=== PATIENT | male | born 1945 | race Caucasian/White ===

== ENCOUNTER 2017-03-02 07:46 | Inpatient (IN) ==
[2017-03-02] MEDS ORDERED: Perflutren Lipid Microsphere 1.3 ML in 0.9 % Sodium Chloride 8.7 ML IVP ONE (08:38)
[2017-03-02] MEDS ORDERED: Naloxone 0.4 MG/ML INJ IVP PRN ×2 (12:53→13:15)
--- NOTE | 2017-03-02 12:58 | Cardiology History & Physical ---
Date of Encounter: 03/02/17 Time of Encounter: 11:00 Assessment and Plan (1) Chest pain Current Visit: Yes Status: Acute The assessment and plan as outlined above was discussed with the patient and/or family members who expressed understanding and agreement. All questions were answered. (2) Abnormal stress ECG with treadmill Current Visit: Yes Status: Acute The assessment and plan as outlined above was discussed with the patient and/or family members who expressed understanding and agreement. All questions were answered. History of Present Illness HPI: Mr. Hook is a 71 year old male Past Med Surg Social Fam HX - Past Medical History Attestation: Yes The following information was validated with the patient. Source: patient Medical history: no medical history, other (obesity) Psychiatric history: no psych history - Past Surgical History Surgical History: herniorrhaphy, other - Social History Smoking Status: Never smoker Smokeless Tobacco Status: No Alcohol use: none Drug use: none - Family History Mother Living Status: Hx Family Cardiac Disorders: No Hx Family Respiratory Disorders: Yes Hx Family Cancer: No Hx Family GI Disorders: No Hx Family Endocrine Disorder: No Hx Family Neuromuscular Disorders: No Hx Family Neurologic Disorders: No Hx Family HEENT Disorders: No Hx Family Autoimmune Disorders: No Medications and Allergies Multivit-Min/FA/Lycopen/Lutein [Centrum Silver Men Tablet] 1 tab PO DAILY [History] 3 Allergy/AdvReac Type Severity Reaction Status Date / Time No Known Allergies Allergy Verified 06/11/16 12:01 All Systems Review: A 10-system review of systems was performed and is negative for pertinent findings except as documented above in the HPI. - Constitutional Constitutional: fatigue - Cardiovascular Cardiovascular: as per HPI, chest pain with exertion, dyspnea on exertion, radiating jaw, neck or arm pain Physical Examination Vital Signs, Last 4 Hours Temp Pulse Resp BP Pulse Ox 03/02/17 12:26 98.1 F 60 18 176/89 96 General: Conversant, No Apparent Distress HEENT: Atraumatic, Normocephaly, Mucus Membranes Moist Neck: No JVD, Normal carotid pulses Cardiac: Reg Rate and Rhythm, Normal S1 and S2, No Murmur Lungs: Normal Breath Sounds, No Wheeze, Rales, Rhonchi Neuro: Alert and responsive, No focal deficits noted Abdomen: Soft, Non-Tender, Other (obese) Skin: No rashes noted on visualized skin Musculoskeletal: No Chest Wall Tenderness Extremities: No Clubbing, No Cyanosis, No Edema, Normal Pulses Results Pending - Imaging and Cardiology Stress Test: pending Cardiac cath: pending - EKG Interpretation EKG results cardiology: personally reviewed, normal ECG, sinus rhythm, other (+ ischemi during stress test)
--- NOTE | 2017-03-02 13:15 | Cardiology History & Physical ---
<Jesus Gates - Last Filed: 03/02/17 14:04> Date of Encounter: 03/02/17 Time of Encounter: 10:00 Assessment and Plan (1) Chest pain Current Visit: Yes Status: Acute Per Cardiology: Experiencing worsening chest pain with exertional activities. Positive ECG abnormal findings during exercise nuclear stress test today. Had CP 7/10 and hypertensive BP response with PVCs. Discussed with Dr. Nolasco and Dr. Chan, plan for LHC today. Qualifiers: Qualified Code(s): R07.9 - Chest pain, unspecified (2) Abnormal stress ECG with treadmill Current Visit: Yes Status: Acute Per Cardiology: Abnormal ST depression during stress test with PVCs, stress images completed, resting to be cancelled since [address] and will have LHC today. The assessment and plan as outlined above was discussed with the patient who expressed understanding and agreement. All questions were answered. History of Present Illness Chief complaint: CP HPI: Mr. Hook is a 71 year old male with an relevant past medical history of obesity. He denies any known history of CAD, hypertension, hyperlipidemia, diabetes mellitus, or nicotine abuse. Denies any family history of CAD-- reports family of lung cancer with significant smoking history. Patient reports exertional chest pain symptoms the past 6 months relieved with rest. He reports symptoms have progressively been getting worse with bilateral arm pain with exertion as well. He does report overall increased fatigue and dyspnea on exertion. Patient seen today during outpatient 2 day exercise nuclear stress test. Patient had hypertensive blood pressure response with frequent ectopy with PVCs and ST depression throughout with chest pain 7 out of 10. D[address] Paniagua and was agreeable for direct admission for catheterization. Past Med Surg Social Fam HX - Past Medical History Attestation: Yes The following information was validated with the patient. Source: patient, old records reviewed Medical history: no medical history, other (obesity) Psychiatric history: no psych history - Past Surgical History Surgical History: herniorrhaphy, other - Social History Smoking Status: Never smoker Smokeless Tobacco Status: No Alcohol use: none Drug use: none - Family History Mother Living Status: Hx Family Cardiac Disorders: No Hx Family Respiratory Disorders: Yes Hx Family Cancer: No Hx Family GI Disorders: No Hx Family Endocrine Disorder: No Hx Family Neuromuscular Disorders: No Hx Family Neurologic Disorders: No Hx Family HEENT Disorders: No Hx Family Autoimmune Disorders: No Medications and Allergies Multivit-Min/FA/Lycopen/Lutein [Centrum Silver Men Tablet] 1 tab PO DAILY [History] 3 Allergy/AdvReac Type Severity Reaction Status Date / Time No Known Allergies Allergy Verified 06/11/16 12:01 All Systems Review: A 10-system review of systems was performed and is negative for pertinent findings except as documented above in the HPI. - Constitutional Constitutional: fatigue - Cardiovascular Cardiovascular: as per HPI, chest pain with exertion, dyspnea on exertion Physical Examination Vital Signs, Last 4 Hours Temp Pulse Resp BP Pulse Ox 03/02/17 12:26 98.1 F 60 18 176/89 96 General: Conversant, No Apparent Distress HEENT: Atraumatic, Normocephaly, Mucus Membranes Moist Neck: No JVD, Normal carotid pulses Cardiac: Reg Rate and Rhythm, Normal S1 and S2, No Murmur Lungs: Normal Breath Sounds, No Wheeze, Rales, Rhonchi Neuro: Alert and responsive, No focal deficits noted Abdomen: Soft, Non-Tender Skin: No rashes noted on visualized skin Musculoskeletal: No Chest Wall Tenderness Extremities: No Clubbing, No Cyanosis, No Edema, Normal Pulses Results labs pending - Imaging and Cardiology Stress Test: pending Cardiac cath: pending - EKG Interpretation EKG results cardiology: personally reviewed, normal ECG, sinus rhythm, other ( ST depression during stress test) <Yves Nolasco - Last Filed: 03/02/17 14:23> Date of Encounter: 03/02/17 - Attending Attestation I have personally performed a face to face evaluation on this patient. I have reviewed and agree with the care plan. History and Exam by me shows: 1. Unstable angina, with progressively decreased exercise tolerance, increased severity of chest pain with exertion, unable to complete 2 mins of stress test before he developed severe, crushing 9/10 mid sternal chest pain, and acute ST seg depression consistent with anterior lateral ischemia. Discussed options, including continued medical tx at maximized doses, versus LHC with percutaneous revascularization if indicated, pt elects to proceed with diagnostic imaging. 2. Morbid obesity. will need careful instuction for lifesytle modifications. History of Present Illness HPI: Mr. Hook is a 71 year old male All Systems Review: A 10-system review of systems was performed and is negative for pertinent findings except as documented above in the HPI. Physical Examination Vital Signs, Last 4 Hours Temp Pulse Resp BP Pulse Ox 03/02/17 12:26 98.1 F 60 18 176/89 96
--- NOTE | 2017-03-02 14:58 | Pre-Sedation Evaluation ---
Pre-sedation evaluation - Pre-sedation checklist Date of procedure: 03/02/17 Procedure: [facility] Recent Vitals: Last Vital Signs Temp 98.1 F 03/02/17 12:26 Pulse 60 03/02/17 12:26 Resp 18 03/02/17 12:26 BP 176/89 03/02/17 12:26 Pulse Ox 96 03/02/17 12:26 H&P (including ROS) documented in medical record: Yes Previous reaction to sedatives/anesthetics: No Dietary Status: NPO after Midnight Dentition: No loose teeth or bridges ASA Classification *see protocol: CLASS II-Mild systemic disease Plan of Care: Pt appropriate candidate for procedure/moderate/conscious sedation , Risks/benefits of procedure/sedation discussed w/ patient/family
[2017-03-02] MEDS: Aspirin 81 MG TAB.CHEW PO SCH ×2 (15:44→20:09)
[2017-03-02 15:55] LABS: Hematocrit 44.4 % (37.5-50.1); Hemoglobin 14.9 g/dL (12.9-16.9); Mean Corpuscular HGB Conc 33.6 g/dL (31.6-35.5); Mean Corpuscular Hemoglobin 29.3 pg (28.0-33.3); Mean Corpuscular Volume 87.2 fL (83.0-100.0); Mean Platelet Volume 9.3 fL (9.4-12.4); Platelet Count 191 K/mcL (140-400); Red Blood Count 5.09 M/mcL (4.19-5.50); Red Cell Distribution Width 13.8 % (11.5-14.5)
[2017-03-02 16:01] LABS: INR 1.1; Prothrombin Time 11.5 Seconds (9.4-12.1)
[2017-03-02 16:08] LABS: BUN/Creatinine Ratio 15 (6-26); Blood Urea Nitrogen 11 mg/dL (8-23); Calcium 9.2 mg/dL (8.6-10.3); Carbon Dioxide 28 mEq/L (23-29); Chloride 106 mEq/L (98-107); Glucose 125 mg/dL (70-105); Osmolality,Calculated 289 (280-300); Potassium 4.1 mEq/L (3.5-5.1); Sodium 139 mEq/L (136-145); eGFR For African Americans > 60 (> 60); eGFR For Non-African Americans > 60 (> 60)
[2017-03-02] MEDS ORDERED: *HR* Heparin 10,000 UNIT/10 ML VIAL ONE (17:21)
[2017-03-02] MEDS ORDERED: Nitroglycerin 1,000 MCG/10 ML VIAL IV ONE (17:21)
[2017-03-02] MEDS ORDERED: 0.9 % Sodium Chloride 1,000 ML ONE (17:21)
[2017-03-02] MEDS ORDERED: Heparin 1,000 UNITS/500 mL 500 ML ONE (17:22)
[2017-03-02] MEDS ORDERED: *HR* Midazolam HCl 5 MG/5 ML VIAL IVP ONE (17:56)
[2017-03-02] MEDS ORDERED: *HR* FentaNYL (PF) 100 MCG/2 ML VIAL ONE (17:56)
[2017-03-02] MEDS ORDERED: Verapamil 5 MG/2 ML VIAL ONE (18:01)
[2017-03-02] MEDS ORDERED: Acetaminophen 325 MG TABLET PO PRN (18:16)
[2017-03-02] MEDS ORDERED: Ondansetron 4 MG/2 ML VIAL IVP PRN (18:16)
[2017-03-02] MEDS ORDERED: *HR* HYDROcodone/Acet 5/325 mg TABLET PO PRN (18:16)
[2017-03-02] MEDS ORDERED: *HR* Heparin 5,000 UNIT/ML VIAL IVP ONE (18:17)
[2017-03-02] MEDS ORDERED: *HR* Heparin 5,000 UNIT/ML VIAL IVP PRN ×2 (18:17)
--- NOTE | 2017-03-02 18:27 | Invasive Diagnostic Lab Proc ---
Name: Cruz Hook Date of Study: 03/02/2017 Date: 1945 Ht: 64.0in Medical Record#: [id number] Age: 71 Wt: 350.54lb Gender: Male BSA: 2.48 Order #: [id number] BMI: 60.17 Physicians Procedure Physician: Woodrow Chan MD, [facility] Referring MD: Referring MD: Staff Name Position Time In Kamaljit Madrid RN Publicity Writer 05:40 PM Gisele Dash RT (R) Scrub 05:40 PM Mk Lopez RT (R) Monitor 05:40 PM Indications Indication Abnormal Test - Stress Procedures Performed Procedure L HRT ARTERY/VENTRICLE ANGIO Pre-Procedure Checklist Informed consent is complete signed and on chart. H&P is on chart. ID band is on and ID verified with patient. Patient NPO for procedure The procedure was described for the patient and questions were answered. Blood Pressure: 185/94 ECG is on chart. Rhythm: NSR Plan of Care Patient will tolerate the procedure without complications. Adequate level of comfort will be maintained. Hemodynamics will remain stable Patient will recover from procedure without complications. Respiratory function will be maintained. Cardiac rhythm will remain stable. Patient temperature will be maintained. Patient and/or family have verbalized understanding of the procedure. Patient Education Chief Complaint/Reason for Test: Cardiac Cath Developmental Category: Geriatric (65+ years) Developmentally Appropriate for Age: Yes Learning Barriers: None Education Needs: Plan of Care Education Method: Verbal Information Taught: Cardiac Cath Educational Evaluation: Able to repeat information Intravenous Access Time IV Size Location DC'd Fluid/Drip Rate Units RN 22g 1" Patent On Arrival Rt Antecubital 0.9NaCl 25 ml/hr Kamaljit Madrid RN Allergies No Known Allergies Vital Signs Time BP (mmHg) HR (bpm) O2 Sat. RR (bpm) LOC 05:43 PM 185 / 94 74 98 % 13 5 = Fully awake and oriented or at pre-proc level 05:43 PM / % 5 = Fully awake and oriented or at pre-proc level 05:58 PM / % 4 = Oriented but drowsy 05:53 PM 185 / 94 78 97 % 18 05:57 PM 179 / 88 74 97 % 15 06:02 PM 165 / 77 64 95 % 25 06:07 PM 142 / 72 71 93 % 35 06:12 PM 145 / 107 114 94 % 17 Procedural Medications Time Medication Dose Units Method Given By 05:55 PM Oxygen 2 L/min nasal cannula Kamaljit Madrid RN 05:58 PM Versed 3 mg Intravenous Kamaljit Madrid RN 05:58 PM Fentanyl 50 mcg Intravenous Kamaljit Madrid RN 06:03 PM Heparin 4000 units Nitroglycerin 200 mcg Verapamil 2.5 mg Intraarterial Woodrow Chan MD, [facility] ASA Classification: CLASS II- Mild systemic disease (i.e. well-controlled diabetes, hypertension, asthma, cigarette smoking) Candace Score Preprocedure Postprocedure Activity 2- Moves 4 extremities sustained head lift Activity Circulation 2- SBP +/= 20 points of pre-anesthetic level Circulation Consciousness 2- Awake and alert oriented x 3 Consciousness O2 Saturation 2- Able to maintain O2 satruation of 92% on room air O2 Saturation Respiratory 2- Able to deep breathe and cough well Respiratory Total Score 10 Total Score Contrast Agent: Isovue Diagnostic Contrast: 61 ml Total Contrast: 61 ml Fluoro Dose: 570 mGy Procedure Log Time Note Enter By 05:40 PM Kamaljit Madrid RN Position: Publicity Writer Time in: 17:40 [email or web address] 05:40 PM Gisele Dash RT (R) Position: Scrub Time in: 17:40 [email or web address] 05:41 PM Mk Lopez RT (R) Position: Monitor Time in: 17:40 [email or web address] 05:41 PM Patient charges- Angio tray pack, Navilyst 3mm J, Pulse Oximetry and ACIST tubing and transducer [email or web address] 05:41 PM Case Delayed No [email or web address] 05:43 PM CathStat 05:43 PM Pt arrived to rags laborer 2 at 17:43 [email or web address] 05:43 PM Time: 17:43 Patient comfortable and pain free: Yes [email or web address] 05:43 PM Time: 17:43LOC: 5 = Fully awake and oriented or at pre-proc level [email or web address] 05:45 PM Physician arrived 17:45 [email or web address] 05:45 PM Meet and greet completed [email or web address] 05:45 PM Sign in performed according to hospital policy. [email or web address] 05:45 PM Procedure start 17:45 [email or web address] 05:46 PM ASA Class CLASS II- Mild systemic disease (i.e. well-controlled diabetes, hypertension, asthma, cigarette smoking) [email or web address] 05:52 PM Vitals capture started with the following parameters, Patient=Adult, Interval=5 min, Initial Sijyepnl=380 mmHg, Deflation Rate=5 mmHg, Cuff placed on Left Arm 05:53 PM HR=78 bpm, DRLM=105/94 mmhg, SpO2=97.0 %, Resp=18 B/min 05:54 PM Recorded ECG: HR=72 Condition=Condition 1 05:55 PM Hair removed from procedure site in procedure lab using clippers. Right wrist prepped with Chloraprep by Mk Lopez (R), safety strap applied then patient was draped. Skin intact. [email or web address] 05:55 PM Hair removed from procedure site in procedure lab using clippers. Right groin prepped with Chloraprep by Mk Lopez (R), safety strap applied then patient was draped. Skin intact. 05:55 PM Time: 17:55 Oxygen on at 2 L/min per nasal cannula by Kamaljit Madrid RN 05:57 PM HR=74 bpm, JPYN=005/88 mmhg, SpO2=97.0 %, Resp=15 B/min 05:58 PM Time: 17:58 Versed 3 mg Intravenous Given by Kamaljit Madrid RN 05:58 PM Time: 17:58 Fentanyl 50 mcg Intravenous Given by Kamaljit Madrid RN 05:58 PM Time: 17:43LOC: 5 = Fully awake and oriented or at pre-proc level bw 05:58 PM Time: 17:43 Patient comfortable and pain free: Yes 06:00 PM Pressure channel 1 zeroed. 06:02 PM Time out performed according to hospital policy 06:02 PM HR=64 bpm, QZNM=834/77 mmhg, SpO2=95.0 %, Resp=25 B/min 06:03 PM Access obtained by percutaneous puncture. 6Fr 10cm Terumo [place] sheath placed in right Radial artery. [id number] [email or web address] 06:03 PM 0.035 260cm Navilyst 3mmJ wire [id number] 06:03 PM Time: 18:03 Patient given 4,000 units Heparin, 200 mcg Nitroglycerin, and 2.5 mg Verapamil Intraarterial by Woodrow Chan MD, [facility]. This is given to reduce risk of vessel spasm and thrombosis. [email or web address] 06:04 PM 5Fr TIG catheter inserted over the wire DN [email or web address] 06:05 PM Recorded Pressure: Ao, HR=72, Condition=Condition 1 (Aorta) Ao 118/68/90 06:06 PM LCA angiography performed in multiple views. [email or web address] 06:07 PM Lesion found in LMCA. Pre Stenosis: 90 Pre YADY Flow: [email or web address] 06:07 PM Left Main Coronary Artery with 90% stenosis [email or web address] 06:07 PM HR=71 bpm, TXYT=749/72 mmhg, SpO2=93.0 %, Resp=35 B/min 06:08 PM Recorded Pressure: Ao, HR=68, Condition=Condition 1 (Aorta) Ao 111/44/80 06:08 PM Catheter removed [email or web address] 06:08 PM 5Fr 3DRC catheter inserted over the wire [id number] [email or web address] 06:09 PM Cardiothoracic surgeon consulted by physician [email or web address] 06:09 PM Lesion found in Proximal LAD. Pre Stenosis: 70 Pre YADY Flow: [email or web address] 06:09 PM Proximal Left Anterior Descending Coronary Artery with 70% stenosis. If graft is supplying this territory, 0 % stenosis. [email or web address] 06:09 PM Lesion found in Mid LAD. Pre Stenosis: 70 Pre YADY Flow: [email or web address] 06:10 PM Mid/Distal Left Anterior Descending Coronary Artery and diagonal branches with 70% stenosis. If graft is supplying this area, 0 % stenosis [email or web address] 06:10 PM Lesion found in Proximal Circumflex. Pre Stenosis: 90 Pre YADY Flow: [email or web address] 06:10 PM Circumflex, Obtuse Marginal, Left Posterior Descending, and Left Posterolateral Coronary Arteries with 90 % stenosis. If graft is supplying this area, 0 % stenosis [email or web address] 06:10 PM Lesion found in Mid Circumflex. Pre Stenosis: 50 Pre YADY Flow: [email or web address] 06:10 PM RCA angiography performed in multiple views. [email or web address] 06:10 PM Recorded Pressure: Ao, HR=67, Condition=Condition 1 (Aorta) Ao 150/42/86 06:11 PM Coronary Dominance: right [email or web address] 06:11 PM Lesion found in Proximal RCA. Pre Stenosis: 95 Pre YADY Flow: [email or web address] 06:11 PM Right Coronary, Right Posterior Descending Arteries with Right Posterolateral and Acute Marginal branches with 95 % stenosis. If graft is supplying this area, 0 % stenosis [email or web address] 06:12 PM Catheter selectively placed in left ventricle bw 06:12 PM QY=317 bpm, OGTN=340/107 mmhg, SpO2=94.0 %, Resp=17 B/min 06:12 PM Bolus angiogram of left Ventricle complete: 10 ml/sec for a total of 30 mls bw 06:13 PM Recorded Pressure: LV, HR=78, Condition=Condition 1 (Left Ventricle) LV 124/20/29 06:13 PM Recorded Pressure: LV, Ao, HR=99, Condition=Condition 1 (Left Ventricle) LV 99/99/82, (Aorta) Ao 148/64/102 06:13 PM Time: 17:58 Patient comfortable and pain free: Yes 06:13 PM Time: 17:58LOC: 4 = Oriented but drowsy bw 06:13 PM Catheter removed bw 06:14 PM Arterial sheath pulled, Vasc Band closure device used and was Successful S/N. 06:14 PM 9 ml air in Vasc Band. [email or web address] 06:15 PM Sign out completed: Radiation Dose 569.87 mGy Fluoro Time: 2.0 Isovue 370 - 200ml contrast 61 ml given by Woodrow Chan MD, FACC. Complications: NoneCardiac Rehab Consult needed: YesConfirmed administered medications: Yes [email or web address] 06:15 PM Estimated Blood Loss: less than 20cc [email or web address] 06:15 PM Post ECG NSR [email or web address] 06:15 PM Post Blood Pressure 142/72 [email or web address] 06:16 PM Information taught Cardiac Cath and Vasc Band [email or web address] 06:16 PM Education needs Procedure, Plan of Care, and Disease Process [email or web address] 06:16 PM Learning barriers :Sedated [email or web address] 06:16 PM Education Methods Verbal [email or web address] 06:16 PM Education evaluation Needs further instruction [email or web address] 06:16 PM Site status No bleeding/hematoma - Rt Wrist as reported by Gisele Dash RT (R) at 18:16 [email or web address] 06:16 PM Delay to floor No [email or web address] 06:16 PM no family [email or web address] 06:16 PM Complications: None [email or web address] 06:16 PM Fluoro Time: 2 [email or web address] 06:16 PM Isovue 370 - 200ml contrast 61 ml given by Woodrow Chan MD, FACC. [email or web address] 06:17 PM Radiation Dose 569.87 mGy [email or web address] 06:17 PM Vitals capture stopped. 06:21 PM Report given to shilpa PERRY Pt taken to Room #15. 18:20 [email or web address] 06:22 PM Patient out of room: 18:22 [email or web address] Complications Complication None None Hemodynamics Pressures Site Systolic/A Wave Diastolic/V Wave Mean AO 118 68 90 AO 111 44 80 AO 150 42 86 LV 124 20 29 LV 99 99 82 AO 148 64 102 Post Procedure Information Blood Pressure: 142/72 mmHg Rhythm: NSR Post procedural instructions were given Surgery consult for CABG Closure Device Time Device Success/Fail 03/02/2017 6:14:00 PM Mechanical Compression Successful Site Checks Time Location Status Staff Sheath In? Note 06:16 PM Rt Wrist No bleeding/hematoma Gisele Dash RT (R) Pulses Time Site Pre-Procedure Post-Procedure Note 03/02/2017 5:41:00 PM Bilateral DP & PT 2+ 03/02/2017 7:41:00 AM Rt Radial 1+ Updated by Mk Lopez RT (R) on 03/02/2017 6:22:33 PM RT Rajni electronically signed on 03/02/2017 6:22:55 PM with status of Final
[2017-03-02] MEDS ORDERED: Heparin 25,000 UNIT/500 ML D5W 25,000 UNIT/500 ML BAG IVC SCH (18:30)
[2017-03-02 18:44] LABS: Activated Partial Thrombo Time 28.7 Seconds (26.0-36.0)
--- NOTE | 2017-03-02 19:03 | Cardiothoracic Consult Note ---
Date of Encounter: 03/02/17 Time of Encounter: 19:00 Assessment and Plan (1) Chest pain Current Visit: Yes Status: Acute The assessment and plan as outlined above was discussed with the patient and/or family members who expressed understanding and agreement. All questions were answered. The patient is a candidate for coronary artery bypass grafting. Presently he is chest pain-free on a heparin drip. Risks of surgery include , infection, bleeding, myocardial infarction, renal or respiratory failure, clots around the heart, acute or chronic graft closure, phrenic nerve injury and sternal dehiscence. The procedure, its risks, benefits and alternatives were explained and he does wish to proceed. At this point, he has no questions. He will be at increased risk because of his large size. He is 5 foot 8 inches and weighs 350 pounds. Qualifiers: Chest pain type: chest pain due to myocardial ischemia Ischemic chest pain type: unstable angina pectoris Qualified Code(s): I20.0 - Unstable angina - History of Present Illness Consult date: 03/02/17 History of present illness: Mr. Hook is a 71 year old male History of present illness. The patient is a 71-year-old gentleman who has a three-week history of chest and arm pain with exertion. No history of myocardial infarction. He has had some pain at rest. He had a positive stress test today. Cardiac catheterization revealed an ejection fraction of 50%. 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 Echocardiogram revealed no valvular dysfunction. Past medical history is notable for hypertension and hyperlipidemia, neither of which is being treated. He also has borderline diabetes, which is also not treated. Social history. He lives in [place] by himself. 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 He does not smoke. Quit drinking alcohol 21 years ago. Family history is positive for COPD. Review of systems is notable for repair of a umbilical hernia with resection of a piece of bowel. No history of stroke or TIA. No history of saphenous vein varicosities or strippings. Past Med Surg Social Fam HX - Past Medical History Medical history: no medical history, other (obesity) Psychiatric history: no psych history - Past Surgical History Surgical History: herniorrhaphy, other - Social History Smoking Status: Never smoker Smokeless Tobacco Status: No Alcohol use: none Drug use: none - Family History Mother Living Status: Hx Family Cardiac Disorders: No Hx Family Respiratory Disorders: Yes Hx Family Cancer: No Hx Family GI Disorders: No Hx Family Endocrine Disorder: No Hx Family Neuromuscular Disorders: No Hx Family Neurologic Disorders: No Hx Family HEENT Disorders: No Hx Family Autoimmune Disorders: No Medications and Allergies Multivit-Min/FA/Lycopen/Lutein [Centrum Silver Men Tablet] 1 tab PO DAILY [History] 3 Allergy/AdvReac Type Severity Reaction Status Date / Time No Known Allergies Allergy Verified 06/11/16 12:01 All Systems Review: A 10-system review of systems was performed and is negative for pertinent findings except as documented above in the HPI. Physical Examination Vital Signs, Last 4 Hours Temp Pulse Resp BP Pulse Ox 03/02/17 18:39 98.1 F 64 18 170/83 03/02/17 15:46 65 18 139/66 97 The patient has bilateral cataracts. He is edentulous. Neck is supple. Trachea in the midline. No thyromegaly or carotid bruits. Lungs are clear to percussion and auscultation. Heart is in a regular rate and rhythm. No murmurs, gallops or rubs. Abdomen is benign. No tenderness, rebound or guarding. He is status post umbilical hernia repair. Extremities without edema. 1+ pulses. No saphenous vein varicosities or strippings. Cranial nerves, motor and sensory intact. He is awake, alert and oriented 3. Results 03/02/17 15:47 03/02/17 15:47 Lab Results, Last 24 hours 03/02/17 03/02/17 03/02/17 15:47 15:47 15:47 WBC 7.3 Hgb 14.9 Hct 44.4 Plt Count 191 INR 1.1 APTT 28.7 Sodium 139 Potassium 4.1 Chloride 106 Carbon Dioxide 28 BUN 11 Creatinine 0.71 Glucose 125 H Calcium 9.2 Consult Discharge Plan - Plan Referrals: Jesus Brown Jr, MD [Primary Care Provider] -
[2017-03-02] MEDS ORDERED: Aspirin 81 MG TAB.CHEW PO ONE (19:33)
[2017-03-02] MEDS: Chlorhexidine Rinse 15 ML MOUTHWASH MM SCH (20:09)
[2017-03-02 20:19] LABS: Chol/HDL Ratio 4.5 (0-4.9)
[2017-03-02 20:27] LABS: Hemoglobin A1C 6.7 %
[2017-03-02 21:44] LABS: Bilirubin,Urine Negative (Negative); Blood,Urine Negative (Negative); Clarity,Urine Clear (Clear); Color,Urine Yellow (Yellow); Glucose,Urine (UA) Normal (Normal); Ketones,Urine Negative (Negative); Leukocyte Esterase,Urine Negative (Negative); Nitrite,Urine Negative (Negative); Protein,Urine Negative (Neg-Trace); Specific Gravity,Urine > 1.030 (1.010-1.025); Urobilinogen,Urine Normal (Normal)
[2017-03-03] MEDS: Chlorhexidine Rinse 15 ML MOUTHWASH MM SCH ×2 (05:58→21:36)
[2017-03-03] MEDS: Aspirin 81 MG TAB.CHEW PO SCH (05:58)
[2017-03-03] MEDS ORDERED: CeFAZolin Syr 3,000MG/30 ML 3,000 MG/30 ML SYRINGE IVPB ONE (06:00)
[2017-03-03] MEDS ORDERED: NiCARdipine 2.5 MG/10 ML Syringe IVPB ONE (06:39)
[2017-03-03] MEDS ORDERED: Nitroglycerin 25 MG/250 ML INFUS..BTL IVC ONE ×2 (06:39→10:39)
[2017-03-03] MEDS ORDERED: Verapamil 5 MG/2 ML VIAL ONE ×2 (06:52→06:53)
[2017-03-03] MEDS ORDERED: *HR* Rocuronium Bromide 50 MG/5 ML VIAL ONE ×2 (06:53→11:15)
[2017-03-03] MEDS ORDERED: *HR* Phenylephrine 10 MG/ML VIAL ONE (06:53)
[2017-03-03] MEDS ORDERED: *HR* Etomidate 20 MG/10 ML AMPUL IVP ONE (06:53)
[2017-03-03] MEDS ORDERED: Famotidine 20 MG/2 ML VIAL ONE (06:53)
[2017-03-03] MEDS ORDERED: Protamine Sulfate 250 MG/25 ML VIAL IVP ONE (06:54)
[2017-03-03] MEDS ORDERED: Tranexamic Acid 1,000 MG/10 ML VIAL ONE ×2 (06:54→09:42)
--- NOTE | 2017-03-03 07:32 | Anesthesia Evaluation PreOp ---
Date of Encounter: 03/03/17 Time of Encounter: 07:30 - Past History Planned Operation: CABG Cardiac History: Angina, HTN, Hyperlipidemia Pulmonary History: Denies Any Significant HX SYSTEMS TEST ENGINEER History: Denies Any Significant HX Other Medical History: Diabetes Type II, Other (super morbid obesity) Anesthesia History: No Prior Anesthetic Complications, Past Anesthesia ( umbilical hernia with bowel resection) Alcohol Use: none Drug use: none Medications and Allergies Multivit-Min/FA/Lycopen/Lutein [Centrum Silver Men Tablet] 1 tab PO DAILY [History] 3 Allergy/AdvReac Type Severity Reaction Status Date / Time No Known Allergies Allergy Verified 06/11/16 12:01 - Meds/Allergy Pre-op Review Medications Reviewed: Yes Allergies Reviewed: Yes Beta Blockers on Current Med List: Yes If Beta Blockers taken, Date/Time (Last Dose taken): today 0600 Anesthesia Results - Labs 03/02/17 15:47 03/02/17 15:47 - Imaging Additional studies: echo: Impressions: LVEF 60%. Indeterminate diastolic function. Definity echo contrast was used. RV is not well visualized. No significant valvular dysfunction. No pulmonary hypertension based on TR gradient, 17 mmHg. IVC is not well visualized. stress test: Impression: Stress study only - resting images were not obtained. There is a large sized moderate-severe intensity perfusion defect on stress images obtained. Location of the defect involves the basal to distal inferior wall, inferolateral wall and apex. Patient has no history of documented CAD. Patient had poor exercise capacity and described chest pain during the procedure. Stress ECG demonstrated marked changes in baseline ST-T wave abnormalities which are not diagnostic but concerning for ischemia. The patient demonstrated a hypertensive blood pressure response in the setting of poor exercise capacity. Short runs of NSVT at peak exercise. Cardiology HEALTH ADVISOR supervising study discussed the abnormal findings with the patient. Given concerning findings, it was recommended the patient be admitted for [facility]. Gated EF 60%. Anesthesia Exam Selected Entries 03/03/17 05:55 Temperature 98.1 F Pulse Rate 67 Respiratory Rate 16 Blood Pressure 151/66 O2 Sat by Pulse Oximetry 95 Oxygen Delivery Method Room Air Weight: 156kg BMI65 NPO (# of Hours): 8 - HEENT Pupil (Motor): EOMI Mallampati: III Teeth: Edentulous Oral Opening: Greater than 3 - SYSTEMS TEST ENGINEER LOC: Oriented SYSTEMS TEST ENGINEER Motor: Normal RUE, Normal LUE, Normal RLE, Normal LLE, Normal Face SYSTEMS TEST ENGINEER Sensory: Normal: RUE, LUE, RLE, LLE, Face - Cardiac Rhythm: Regular Murmur: None - Pulmonary Breath Sounds: bilateral Clear Respiratory Effort: Symmetrical Anesthesia Assess/Plan ASA Score: 4 Modified [place] Scale for Level of Consciousness: Cooperative, oriented, and tranquil Anesthetic Plan: General Monitoring Plan: Standard Monitors, A-Line, PAC Recovery Plan: ICU (Discussed GA, lines and blood products. Agrees to proceed)
[2017-03-03] MEDS ORDERED: *HR* Midazolam HCl 5 MG/5 ML VIAL IVP ONE ×2 (07:53→11:16)
[2017-03-03] MEDS ORDERED: *HR* FentaNYL (PF) 1,000 MCG/20 ML VIAL ONE (07:54)
[2017-03-03] MEDS ORDERED: Heparin 1,000 UNIT, 0.9 % Sodium Chloride 500 ML INARTERIAL ONE (08:00)
[2017-03-03 08:38] LABS: ABG Base Excess 0 mEq/L (-2 to 3); ABG Chloride 105 mEq/L (98-107); ABG Glucose 181 mg/dL (60-95); ABG HCO3 28 mEq/L (21-27); ABG Ionized Calcium 1.27 mmol/L (1.15-1.35); ABG Oxygen Saturation 100 % (95-98); ABG PCO2 52 mmHg (35-45); ABG PH 7.33 pH Units (7.32-7.45); ABG PO2 420 mmHg (85-104); ABG TCO2 29 mEq/L (20-26)
--- NOTE | 2017-03-03 09:53 | Anesthesia Procedures ---
Date of Encounter: 03/03/17 Time of Encounter: 08:00 Procedures: Anesthesia - Arterial Line Consent obtained: written consent Time out performed: Yes Sedation: Versed (mg): 2 Sedation: Fentanyl (mcg): 100 Supplemental Oxygen via Nasal Cannula (L/min): 2 Comments: I attempted bilateral radials and brachials. I used US to place needles. I was able to cannulate at all sites but unable to advance guidewire at any location despite great blood return. After multiple failures, Dr Yeboah was able to successfully place a right femoral line. - Central Line Placement Right IJ Consent obtained: written consent Time out performed: Yes Patient placed on monitor/pulse ox: Yes MD prep: mask, gown, gloves Central line prep: Chlorhexidine scrub Ultrasound used for placement: Yes Technique: Seldinger Lumen Inserted: Introducer Post procedure: sutured in place, good blood return, all ports aspirated, flushed, capped, sterile dressing applied Patient tolerated procedure: well, no complications Comments: able to easily place introducer. [place] placed easily, without arrythmia, wedge approx 60cm.
[2017-03-03 10:03] LABS: ABG Base Excess -1 mEq/L (-2 to 3); ABG Chloride 105 mEq/L (98-107); ABG Glucose 206 mg/dL (60-95); ABG HCO3 25 mEq/L (21-27); ABG Oxygen Saturation 99 % (95-98); ABG PCO2 45 mmHg (35-45); ABG PH 7.36 pH Units (7.32-7.45); ABG PO2 169 mmHg (85-104); ABG TCO2 27 mEq/L (20-26)
[2017-03-03] MEDS ORDERED: Albumin Human 5% 50.0 GM/1,000 ML VIAL ONE (10:39)
[2017-03-03 10:45] LABS: ABG Base Excess 0 mEq/L (-2 to 3); ABG Chloride 100 mEq/L (98-107); ABG Glucose 239 mg/dL (60-95); ABG HCO3 26 mEq/L (21-27); ABG Ionized Calcium 1.05 mmol/L (1.15-1.35); ABG Oxygen Saturation 100 % (95-98); ABG PCO2 45 mmHg (35-45); ABG PH 7.37 pH Units (7.32-7.45); ABG PO2 581 mmHg (85-104); ABG TCO2 27 mEq/L (20-26)
[2017-03-03] MEDS ORDERED: *HR* Heparin 10,000 UNIT/10 ML VIAL IV ONE (10:50)
[2017-03-03] MEDS ORDERED: *HR* Phenylephrine 10 MG/ML VIAL IVC ONE (10:50)
[2017-03-03] MEDS ORDERED: Lidocaine 2% Syringe 100 MG/5 ML IV ONE (10:50)
[2017-03-03] MEDS ORDERED: Albumin Human 25% 25 GM/100 ML IV.SOLN IV ONE (10:50)
[2017-03-03] MEDS ORDERED: Mannitol 25% vial 12.5 GM/50 ML VIAL IVP ONE (10:50)
[2017-03-03] MEDS ORDERED: *HR* FentaNYL (PF) 250 MCG/5 ML VIAL ONE (11:16)
[2017-03-03 11:17] LABS: ABG Base Excess 2 mEq/L (-2 to 3); ABG Chloride 102 mEq/L (98-107); ABG Glucose 237 mg/dL (60-95); ABG HCO3 27 mEq/L (21-27); ABG Ionized Calcium 1.06 mmol/L (1.15-1.35); ABG Oxygen Saturation 100 % (95-98); ABG PCO2 45 mmHg (35-45); ABG PH 7.39 pH Units (7.32-7.45); ABG PO2 438 mmHg (85-104); ABG TCO2 29 mEq/L (20-26)
[2017-03-03 11:33] LABS: ABG Base Excess 1 mEq/L (-2 to 3); ABG Chloride 102 mEq/L (98-107); ABG Glucose 190 mg/dL (60-95); ABG HCO3 27 mEq/L (21-27); ABG Oxygen Saturation 100 % (95-98); ABG PCO2 46 mmHg (35-45); ABG PH 7.38 pH Units (7.32-7.45); ABG PO2 386 mmHg (85-104); ABG TCO2 28 mEq/L (20-26)
[2017-03-03] MEDS ORDERED: Insulin Regular, Human 100 UNIT/ML IV PRN (12:18)
[2017-03-03] MEDS ORDERED: Acetaminophen 650 MG RECTAL SUPP RC PRN (12:18)
[2017-03-03] MEDS ORDERED: *HR* Dextrose 50 % in Water (Syg) 50 ML SYRINGE IVP PRN (12:18)
[2017-03-03] MEDS ORDERED: Potassium Chloride 40 MEQ/200 ML BAG IVPB PRN (12:18)
[2017-03-03 12:26] LABS: VBG Base Excess -2 mEq/L; VBG Chloride 106 mEq/L (98-107); VBG Glucose 147 mg/dl (65-95); VBG HCO3 24 mEq/L (21-27); VBG Oxygen Saturation 94 %; VBG PCO2 43 mmHg (41-51); VBG PH 7.35 pH Units (7.32-7.42); VBG PO2 75 mmHg (25-50); VBG Total CO2 25 mEq/L
--- NOTE | 2017-03-03 12:35 | Operative Note ---
Date of procedure: 03/03/17 Pre-op diagnosis: CAD Post-op diagnosis: same Procedure: 1. CABG x 3 (DOMÍNGUEZ to LAD, SVG to distal LCx, SVG to PDA). 2. Endoscopic vein harvesting, greater saphenous vein from right lower extremity. Implants: None. Anesthesia: GETA Surgeon: Willian Yeboah Was there an licensed physical therapist assistant present: Yes Polysomnography Technologist: Brad Beasley Estimated blood loss (cc): 500 Specimen: None. Condition: stable Disposition: ICU Procedure in Detail: INDICATIONS FOR OPERATION: Patient is a 71-year-old morbidly obese man who has experienced exertional substernal chest pain radiating to both arms for 3-6 months. Patient has associated shortness of breath, but denies any diaphoresis, nausea, vomiting, or syncope. Occasionally the patient will have pain at rest. He underwent an excise nuclear stress test which reproduced his symptoms and the ECG portion revealed ST depression. He underwent direct admission after his excise stress test. The echocardiogram revealed an LVEF 50% with possible LV diastolic dysfunction. No valvular dysfunction was noted. Subsequent cardiac catheterization revealed severe 3 vessel CAD. Particular the patient and 90% distal left main lesion, an 80-90% mid LAD lesion, and a 90% proximal RCA lesion. The patient was recommended for CABG. FINDINGS AT OPERATION: The aorta was normal caliber without calcification. The coronary artery measured approximately 2-3 mm in diameter at mild distal disease, except the LAD which had diffuse, moderate disease through the entire length of the vessel. Greater saphenous vein was harvested endoscopically from the right lower extremity and was of good quality. The total bypass time was 77 minutes, cross-clamp time 46 minutes, intentional hypothermia of 34.6C. DESCRIPTION OF OPERATION: After obtaining informed consent from the patient, he was taken to the operative tumor satisfactory general tracheal anesthetic was induced. Appropriate monitoring lines were placed, and the patient's chest, abdomen, and lower extremity are prepped and draped in a sterile fashion. The greater saphenous vein was harvested endoscopically from the right lower extremity from the knee to the groin. The vein was removed, distended, and found to be of good quality. The subtenons tissue and skin edges reapproximated using running Vicryl sutures. Simultaneously a standard median sternotomy incision was made and the sternum divided. The DOMÍNGUEZ was taken out from its bed and side branches divided between hemoclips. The sternum was in the pericardium was opened and reflected laterally. The patient was prepared for cannulation with placing pursestring sutures in the distal ascending aorta, mid-ascending aorta, and right atrial appendage. The patient was heparinized and when the ACT was greater than 200 seconds, the distal ascending aorta was cannulated followed by placement of a dual stage venous catheter in the right atrial appendage into the inferior vena cava. A stab-in antegrade metabolic cannula was placed in the mid-ascending aorta. The patient was placed on bypass and the temperature allowed to drift to 34.6 C. The distal targets were identified and the aorta was crossclamped. Patient received 700 cc of cold antegrade crystalloid cardioplegia through the aortic root and the patient's obtained diastolic arrest. The PDA was opened with a Craig blade and the vein was anastomosed in end-to-side fashion using running 7 -0 Prolene suture. The anastomosis found be hemostatic. Electrical activity was noted and the patient received another dose of cold antegrade crystalloid cardioplegia through the aortic root. The distal LCx was opened with Craig blade and the vein was anastomosed in an end-to-side fashion using running 7-0 Prolene suture. The anastomosis found to be hemostatic. The LAD was opened with a Craig blade and the DOMÍNGUEZ was anastomosed in an end-to-side fashion to the LAD using running 7-0 Prolene suture. The anastomosis found to be hemostatic and the mammary pedicle was tacked to the epicardium using interrupted 5-0 silk suture. Rewarming was begun during this anastomosis. The aortic cross-clamp was released and the heart distended. The veins were measured to appropriate lengths. A partial occluding clamp was placed across the mid-ascending aorta and the antegrade cardioplegia cannula was removed. An additional aortotomy site was made 11 blade and both sites were large with a 4 mm punch. The veins were anastomosed in an end-to-side fashion aorta using running 5-0 Prolene suture. The vein grafts were occluded with bulldog clamps and de-aired with a 25-gauge needle prior to removing the partial occluding clamp. The proximal and distal anastomoses were found to be static and the proximal anastomoses were marked with radiopaque loops. Two right ventricular temporary pacing was replaced, and 3 chest tubes were placed, 2 in the mediastinum and one into the left pleural space. During rewarming the patient's heart rhythm degenerated to ventricular fibrillation and required a single 10 J direct current shock in order to regain normal sinus rhythm. When the patient's systemic temperature reached 36C, he was ventilated and received volume. He was weaned from bypass and required no inotropic support. Protamine was administered and the aortic and venous cannulae were removed. The pursestring sutures were secured and the venous cannulation site was reinforced with a running 4-0 Prolene suture. The pericardium was reapproximated in the midline using interrupted 0 silk suture and the sternum was reapproximated sternal wires. The pectoralis major fascia, rectus abdominis fascia, subcutaneous tissue, and skin edges were reapproximated using running Vicryl sutures. A sterile wound VAC was applied to the sternotomy incision. The patient was transferred to the ICU in satisfactory postoperative condition. There were no inotropic complications, the instrument, needle, and sponge count were correct at end of operation.. - Open Heart Detail GLEN (Internal Mammary Artery) Usage: Yes Cardiopulmonary Bypass Time (mins): 77 Aortic Cross Clamp Time (mins): 46 Intentional Hypothermia Temperature (C.): 34.6
[2017-03-03] MEDS: Norepinephrine 4 MG in D5% in Water 250 ML IVC SCH (13:15)
[2017-03-03 13:41] LABS: Basophils # 0.1 K/mcL (0.0-0.2); Basophils % 0.3 %; Eosinophils # 0.4 K/mcL (0.0-0.6); Hematocrit 34.6 % (37.5-50.1); Immature Granulocytes % 0.7 % (0-4); Lymphocytes # 1.8 K/mcL (0.6-4.6); Lymphocytes % 8.8 %; Mean Corpuscular HGB Conc 33.2 g/dL (31.6-35.5); Mean Corpuscular Hemoglobin 29.1 pg (28.0-33.3); Mean Corpuscular Volume 87.6 fL (83.0-100.0); Mean Platelet Volume 9.3 fL (9.4-12.4); Monocytes # 1.1 K/mcL (0.0-1.3); Monocytes % 5.3 %; Platelet Count 135 K/mcL (140-400); Red Blood Count 3.95 M/mcL (4.19-5.50); Red Cell Distribution Width 13.5 % (11.5-14.5); Segmented Neutrophils % 82.9 %
[2017-03-03 13:42] LABS: Hemoglobin 11.5 g/dL (12.9-16.9); Neutrophils # 17.2 K/mcL (1.6-8.9)
[2017-03-03] MEDS ORDERED: 0.9 % Sodium Chloride 250 ML ONE (13:44)
[2017-03-03 13:45] LABS: ABG Base Excess -1 mEq/L (-2 to 3); ABG HCO3 24 mEq/L (21-27); ABG Oxygen Saturation 100 % (95-98); ABG PCO2 42 mmHg (35-45); ABG PH 7.37 pH Units (7.32-7.45); ABG PO2 244 mmHg (85-104); ABG TCO2 26 mEq/L (20-26)
[2017-03-03] MEDS: 0.9 % Sodium Chloride w KCl 20 MEQ/1,000 ML MLS IVC SCH (13:48)
[2017-03-03 13:49] LABS: INR 1.7; Prothrombin Time 18.2 Seconds (9.4-12.1)
[2017-03-03] MEDS: Multivit/Ca/Min/Fe/FA 1 TAB TABLET PO SCH (13:51)
[2017-03-03 13:52] LABS: BUN/Creatinine Ratio 14 (6-26); Blood Urea Nitrogen 11 mg/dL (8-23); Carbon Dioxide 25 mEq/L (23-29); Chloride 111 mEq/L (98-107); Glucose 103 mg/dL (70-105); Magnesium 2.3 mg/dL (1.6-2.6); Osmolality,Calculated 290 (280-300); Potassium 3.8 mEq/L (3.5-5.1); Sodium 140 mEq/L (136-145); eGFR For African Americans > 60 (> 60); eGFR For Non-African Americans > 60 (> 60)
[2017-03-03 14:07] LABS: Activated Partial Thrombo Time > 360.0 Seconds (26.0-36.0)
[2017-03-03 14:14] LABS: Heparin anti-factor XA UFH 0.44 IU/mL (0.30-0.70)
[2017-03-03] MEDS: *HR* Morphine 2 MG/ML SYRINGE IVP PRN ×3 (14:15→21:36)
[2017-03-03] MEDS: niCARdipine 40 MG/200 ML MLS IVC SCH (14:25)
[2017-03-03] MEDS: *HR* OxyCODONE/APAP 5/325 TABLET PO PRN ×2 (14:35→18:19)
[2017-03-03] MEDS: Pantoprazole 40 MG VIAL IVP SCH (14:55)
[2017-03-03] MEDS: Insulin Human Regular 100 UNIT in 0.9 % Sodium Chloride 100 ML IVC SCH (15:20)
[2017-03-03 16:36] LABS: ABG Base Excess -4 mEq/L (-2 to 3); ABG HCO3 23 mEq/L (21-27); ABG Oxygen Saturation 95 % (95-98); ABG PCO2 52 mmHg (35-45); ABG PH 7.26 pH Units (7.32-7.45); ABG PO2 88 mmHg (85-104); ABG TCO2 25 mEq/L (20-26)
[2017-03-03] MEDS: CeFAZolin Syr 3,000MG/30 ML 3,000 MG/30 ML SYRINGE IVPB SCH ×2 (16:58→23:50)
[2017-03-03] MEDS: Metoclopramide 10 MG/2 ML VIAL IVP SCH ×2 (17:19→23:53)
[2017-03-03] MEDS: Dexmedetomidine HCl 400 MCG/100 ML MLS IVC SCH (17:32)
[2017-03-03 20:42] LABS: ABG Base Excess -1 mEq/L (-2 to 3); ABG HCO3 25 mEq/L (21-27); ABG Oxygen Saturation 97 % (95-98); ABG PCO2 42 mmHg (35-45); ABG PH 7.38 pH Units (7.32-7.45); ABG PO2 87 mmHg (85-104); ABG TCO2 26 mEq/L (20-26); Blood Gas Modality ASSIST CONTROL; Blood Gas PEEP 5 cm H2O; Blood Gas Respiration Rate 16; Blood Gas VT 500 cc
[2017-03-04 00:43] LABS: ABG Base Excess -1 mEq/L (-2 to 3); ABG HCO3 24 mEq/L (21-27); ABG Oxygen Saturation 96 % (95-98); ABG PCO2 39 mmHg (35-45); ABG PO2 85 mmHg (85-104); ABG TCO2 25 mEq/L (20-26); Blood Gas Modality ASSIST CONTROL; Blood Gas PEEP 5 cm H2O; Blood Gas Respiration Rate 16; Blood Gas VT 500 cc
[2017-03-04] MEDS: *HR* Morphine 2 MG/ML SYRINGE IVP PRN ×2 (02:06→21:21)
[2017-03-04] MEDS: Dexmedetomidine HCl 400 MCG/100 ML MLS IVC SCH ×2 (02:15→16:40)
[2017-03-04 03:59] LABS: ABG Base Excess -1 mEq/L (-2 to 3); ABG HCO3 24 mEq/L (21-27); ABG Oxygen Saturation 94 % (95-98); ABG PCO2 42 mmHg (35-45); ABG PH 7.37 pH Units (7.32-7.45); ABG PO2 73 mmHg (85-104); ABG TCO2 26 mEq/L (20-26); Blood Gas Modality CPAP/PS; Blood Gas PEEP 5 cm H2O; Blood Gas Pressure Support 8 cm H2O
[2017-03-04 04:07] LABS: Basophils % 0.2 %; Eosinophils % 0.1 %; Hematocrit 32.6 % (37.5-50.1); Hemoglobin 11.1 g/dL (12.9-16.9); Immature Granulocytes % 0.5 % (0-4); Lymphocytes # 0.7 K/mcL (0.6-4.6); Lymphocytes % 5.2 %; Mean Corpuscular Hemoglobin 29.9 pg (28.0-33.3); Mean Corpuscular Volume 87.9 fL (83.0-100.0); Mean Platelet Volume 9.9 fL (9.4-12.4); Monocytes # 1.2 K/mcL (0.0-1.3); Monocytes % 8.9 %; Neutrophils # 11.3 K/mcL (1.6-8.9); Platelet Count 122 K/mcL (140-400); Red Blood Count 3.71 M/mcL (4.19-5.50); Segmented Neutrophils % 85.1 %
[2017-03-04 04:19] LABS: BUN/Creatinine Ratio 16 (6-26); Blood Urea Nitrogen 16 mg/dL (8-23); Calcium 7.4 mg/dL (8.6-10.3); Carbon Dioxide 23 mEq/L (23-29); Chloride 113 mEq/L (98-107); Glucose 156 mg/dL (70-105); Magnesium 2.2 mg/dL (1.6-2.6); Osmolality,Calculated 298 (280-300); Potassium 4.2 mEq/L (3.5-5.1); Sodium 142 mEq/L (136-145); eGFR For African Americans > 60 (> 60); eGFR For Non-African Americans > 60 (> 60)
[2017-03-04 04:54] LABS: INR 1.4; Prothrombin Time 14.7 Seconds (9.4-12.1)
[2017-03-04 04:57] LABS: Activated Partial Thrombo Time 28.7 Seconds (26.0-36.0)
[2017-03-04] MEDS: *HR* OxyCODONE/APAP 5/325 TABLET PO PRN ×3 (05:13→21:21)
[2017-03-04] MEDS: Metoclopramide 10 MG/2 ML VIAL IVP SCH ×3 (05:14→16:38)
[2017-03-04] MEDS: *HR* Heparin 5,000 UNIT/ML VIAL SQ SCH ×2 (05:15→16:38)
[2017-03-04] MEDS: niCARdipine 40 MG/200 ML MLS IVC SCH ×3 (07:08→12:54)
[2017-03-04] MEDS: 0.9 % Sodium Chloride w KCl 20 MEQ/1,000 ML MLS IVC SCH (07:44)
[2017-03-04] MEDS: Pantoprazole 40 MG VIAL IVP SCH (07:45)
[2017-03-04] MEDS: Chlorhexidine Rinse 15 ML MOUTHWASH MM SCH ×2 (07:45→19:49)
[2017-03-04] MEDS: Furosemide 20 MG/2 ML VIAL IVP SCH ×2 (07:46→19:49)
[2017-03-04] MEDS: Insulin Human Regular 100 UNIT in 0.9 % Sodium Chloride 100 ML IVC SCH (07:52)
[2017-03-04] MEDS: Multivit/Ca/Min/Fe/FA 1 TAB TABLET PO SCH (07:55)
[2017-03-04] MEDS: Aspirin 81 MG TAB.CHEW PO SCH (07:55)
--- NOTE | 2017-03-04 08:39 | Cardiothoracic Progress Note ---
Date of Encounter: 03/04/17 Time of Encounter: 08:36 - Assessment and plan (1) CAD (coronary artery disease) Current Visit: Yes Status: Acute The patient is recovering well from his CABGx3. He is currently extubated and breathing comfortably. The arterial line and [place] catheter be removed. The Morocho catheter and chest tubes remain in place until at least tomorrow morning. The patient will work on aggressive pulmonary toilet today. He will be monitored in the ICU The assessment and plan as outlined above was discussed with the patient and/or family members who expressed understanding and agreement. All questions were answered. Qualifiers: Coronary Disease-Associated Artery/Lesion type: [place] artery [place] vs. transplanted heart: [place] heart Associated angina: with stable angina Qualified Code(s): I25.118 - Atherosclerotic heart disease of [place] coronary artery with other forms of angina pectoris - Subjective Procedure(s) Performed: POD#1 S/P CABG3 Interval history: The patient remained hemodynamically stable overnight. He is currently extubated and breathing comfortably. He has no complaints. Vital Signs, Last 4 Hours Temp Pulse Resp BP Pulse Ox 03/04/17 08:00 98.5 F 96 16 143/62 93 03/04/17 07:50 98.3 F 03/04/17 07:47 18 94 03/04/17 06:58 99.1 F 84 18 116/57 93 03/04/17 06:00 99.9 F H 87 20 114/55 93 03/04/17 05:00 99.9 F H 89 20 119/57 91 Oxgyen Flow Rate Oxygen Flow Rate (LPM) 8 Clinical Data, last 8 Hours Output, Chest Tube Drainage 0 Amount [Mediastinal #2] Output, Chest Tube Drainage 15 Amount [Mediastinal #2] Output, Chest Tube Drainage 20 Amount [Mediastinal #2] Output, Chest Tube Drainage 10 Amount [Mediastinal #2] Output, Chest Tube Drainage 0 Amount [Mediastinal #2] Output, Chest Tube Drainage 0 Amount [Mediastinal #2] Output, Chest Tube Drainage 5 Amount [Mediastinal #2] Output, Chest Tube Drainage 5 Amount [Mediastinal #2] Output, Chest Tube Drainage 0 Amount [Mediastinal #1] Output, Chest Tube Drainage 10 Amount [Mediastinal #1] Output, Chest Tube Drainage 10 Amount [Mediastinal #1] Output, Chest Tube Drainage 20 Amount [Mediastinal #1] Output, Chest Tube Drainage 0 Amount [Mediastinal #1] Output, Chest Tube Drainage 0 Amount [Mediastinal #1] Output, Chest Tube Drainage 40 Amount [Mediastinal #1] Output, Chest Tube Drainage 20 Amount [Mediastinal #1] Weight 03/02/17 03/03/17 03/04/17 23:59 23:59 23:59 Weight 158.8 kg 155.8 kg 160.6 kg - Physical Examination General: Conversant, No Apparent Distress Neck: No JVD, Normal carotid pulses Cardiac: Reg Rate and Rhythm, Normal S1 and S2, No Murmur Incision: No signs of infection, Dry/intact dressing Sternum: Stable Chest tubes: Minimal drainage, Other (No air leak.) Pacing Wires: In place Lungs: Normal Breath Sounds, No Wheeze, Rales, Rhonchi Neuro: Alert and responsive, No focal deficits noted Vascular: Normal capillary refill Extremities: No Clubbing, No Cyanosis, No Edema - Labs 03/04/17 03:55 03/04/17 03:55 Lab Results, Last 24 hours 03/03/17 03/03/17 03/03/17 13:30 13:30 13:30 WBC 20.7 H D Hgb 11.5 L D Hct 34.6 L Plt Count 135 L INR 1.7 D APTT > 360.0 H* D Sodium 140 Potassium 3.8 Chloride 111 H Carbon Dioxide 25 BUN 11 Creatinine 0.76 Glucose 103 Calcium 8.0 L Magnesium 2.3 03/03/17 03/04/17 03/04/17 14:10 03:55 03:55 WBC 13.3 H Hgb 11.1 L Hct 32.6 L Plt Count 122 L INR APTT 27.5 D Sodium 142 Potassium 4.2 Chloride 113 H Carbon Dioxide 23 BUN 16 Creatinine 1.01 Glucose 156 H Calcium 7.4 L Magnesium 2.2 03/04/17 04:40 WBC Hgb Hct Plt Count INR 1.4 APTT 28.7 Sodium Potassium Chloride Carbon Dioxide BUN Creatinine Glucose Calcium Magnesium - Imaging Chest Xray: image reviewed (No pneumothorax. Left lower lobe atelectasis.) - VTE Reasons for not Prescribing Prophylaxis: Treatment not Indicated - Low risk for VTE Documentation of Mechanical Device: Graduated compression elastic hosiery Consult Discharge Plan - Plan Referrals: Jesus Brown Jr, MD [Primary Care Provider] -
[2017-03-04] MEDS ORDERED: D5% in Water 1,000 ML IVC PRN (08:42)
[2017-03-04] MEDS ORDERED: *HR* Dextrose 50 % in Water (Syg) 50 ML SYRINGE IVP PRN (08:42)
[2017-03-04] MEDS ORDERED: Dextrose Gel 15 GM/37.5 ML TUBE PO PRN ×2 (08:42)
[2017-03-04] MEDS: Norepinephrine 4 MG in D5% in Water 250 ML IVC SCH (12:54)
[2017-03-04] MEDS: Insulin LISPRO 300 UNITS/3 ML VIAL SQ SCH ×3 (14:02→19:50)
--- NOTE | 2017-03-04 15:04 | Anesthesia Evaluation Post Op ---
Date of Encounter: 03/04/17 Time of Encounter: 15:03 - Vital Signs Vital Signs: Selected Entries 03/04/17 14:00 Pulse Rate 96 Respiratory Rate 22 Blood Pressure 120/72 O2 Sat by Pulse Oximetry 95 - Lungs Lungs: Clear Ascult./Percussion - Airway Airway: Non-obstructed - Cardiovascular Regular Rate - Mental Status Mental Status: Alert & Oriented, Answers Appropriately - Pain Pain Scale: 3 Pain Scale used: Numeric (1 - 10) - Nausea Vomiting Nausea Vomiting: Not Present - Hydration Hydration: Tolerates oral liquids, Morocho catheter (no post anesthesia issues)
--- NOTE | 2017-03-04 19:41 | Electrocardiograph Report ---
[address] [place], [place] [address] Test Date: 2017-03-03 Pat Name: Cruz Hook Department: 110 Room: [facility] Gender: M Rate Reviewer: LUPILLO : 1945 Requested By: Jesus Gates Order Number: [id number] Reading MD: Woodrow Chan MD Measurements Intervals [place] Rate: 62 P: 27 W[place]: 173 QRS: 44 QRSD: 97 T: 2 QT: 407 QTc: 412 Interpretive Statements SINUS RHYTHM Electronically Signed On 03-04-2017 19:39:51 EST by Woodrow Chan MD
--- NOTE | 2017-03-04 19:51 | Electrocardiograph Report ---
[address] [address] Test Date: 2017-03-03 Pat Name: Cruz Hook Department: 109 Room: [facility] Gender: M Construction Sales Representative: ROD : 1945 Requested By: Willian Yeboah Order Number: [id number] Reading MD: Woodrow Chan MD Measurements Intervals [place] Rate: 62 P: 47 GA: 177 QRS: 32 QRSD: 105 T: 28 QT: 429 QTc: 435 Interpretive Statements SINUS RHYTHM LOW QRS VOLTAGE IN PRECORDIAL LEADS Electronically Signed On 03-04-2017 19:49:18 EST by Woodrow Chan MD
[2017-03-05] MEDS: Metoclopramide 10 MG/2 ML VIAL IVP SCH ×5 (00:28→23:30)
[2017-03-05 03:54] LABS: Basophils % 0.2 %; Eosinophils # 0.1 K/mcL (0.0-0.6); Eosinophils % 0.4 %; Hematocrit 32.7 % (37.5-50.1); Hemoglobin 10.8 g/dL (12.9-16.9); Immature Granulocytes % 0.5 % (0-4); Lymphocytes # 0.9 K/mcL (0.6-4.6); Lymphocytes % 6.3 %; Mean Corpuscular Hemoglobin 29.3 pg (28.0-33.3); Mean Corpuscular Volume 88.6 fL (83.0-100.0); Mean Platelet Volume 10.2 fL (9.4-12.4); Monocytes # 1.2 K/mcL (0.0-1.3); Monocytes % 8.4 %; Neutrophils # 11.8 K/mcL (1.6-8.9); Platelet Count 124 K/mcL (140-400); Red Blood Count 3.69 M/mcL (4.19-5.50); Red Cell Distribution Width 14.1 % (11.5-14.5); Segmented Neutrophils % 84.2 %
[2017-03-05 04:21] LABS: BUN/Creatinine Ratio 20 (6-26); Blood Urea Nitrogen 17 mg/dL (8-23); Calcium 8.1 mg/dL (8.6-10.3); Carbon Dioxide 26 mEq/L (23-29); Chloride 106 mEq/L (98-107); Glucose 168 mg/dL (70-105); Osmolality,Calculated 289 (280-300); Potassium 4.1 mEq/L (3.5-5.1); Sodium 137 mEq/L (136-145); eGFR For African Americans > 60 (> 60); eGFR For Non-African Americans > 60 (> 60)
[2017-03-05] MEDS: *HR* Heparin 5,000 UNIT/ML VIAL SQ SCH ×2 (05:14→18:13)
[2017-03-05] MEDS: Insulin LISPRO 300 UNITS/3 ML VIAL SQ SCH ×4 (08:20→20:16)
[2017-03-05] MEDS: Chlorhexidine Rinse 15 ML MOUTHWASH MM SCH ×2 (09:32→20:14)
[2017-03-05] MEDS: Pantoprazole 40 MG VIAL IVP SCH (09:32)
[2017-03-05] MEDS: Aspirin Enteric Coated 81 MG Tablet PO SCH (09:32)
[2017-03-05] MEDS: Multivit/Ca/Min/Fe/FA 1 TAB TABLET PO SCH (09:32)
[2017-03-05] MEDS: Furosemide 20 MG/2 ML VIAL IVP SCH ×2 (09:36→20:15)
[2017-03-05] MEDS: dilTIAZem HCl 100 MG in D5% in Water 50 ML IVC SCH ×3 (09:38→23:47)
--- NOTE | 2017-03-05 10:21 | Cardiothoracic Progress Note ---
Date of Encounter: 03/05/17 Time of Encounter: 10:21 - Assessment and plan (1) CAD (coronary artery disease) Current Visit: Yes Status: Acute The patient is recovering well from his CABGx3. He is breathing comfortably. His atrial fibrillation is being treated with a Cardizem drip. The chest tubes were removed. The [place] catheter will be removed later today. The patient will insinuate to work on aggressive pulmonary toilet. He will be monitored in the ICU today. The assessment and plan as outlined above was discussed with the patient and/or family members who expressed understanding and agreement. All questions were answered. Qualifiers: Coronary Disease-Associated Artery/Lesion type: [place] artery [place] vs. transplanted heart: [place] heart Associated angina: with stable angina Qualified Code(s): I25.118 - Atherosclerotic heart disease of [place] coronary artery with other forms of angina pectoris - Subjective Procedure(s) Performed: POD#2 S/P CABG3 Interval history: The patient remained hemodynamically stable overnight. He is breathing comfortably. He has no complaints. Vital Signs, Last 4 Hours Temp Pulse Resp BP Pulse Ox 03/05/17 08:20 99 23 153/80 94 03/05/17 08:06 18 147/76 93 03/05/17 07:54 97.3 F L 03/05/17 07:27 99 22 147/76 94 Oxgyen Flow Rate Oxygen Flow Rate (LPM) 6 Clinical Data, last 8 Hours Output, Chest Tube Drainage 0 Amount [Mediastinal #2] Output, Chest Tube Drainage 10 Amount [Mediastinal #2] Output, Chest Tube Drainage 10 Amount [Mediastinal #1] Output, Chest Tube Drainage 10 Amount [Mediastinal #1] Weight 03/03/17 03/04/17 03/05/17 23:59 23:59 23:59 Weight 155.8 kg 160.6 kg 159.2 kg - Physical Examination General: Conversant, No Apparent Distress Neck: No JVD, Normal carotid pulses Cardiac: Normal S1 and S2, No Murmur, Other (Irregular rate and rhythm (atrial fibrillation).) Incision: No signs of infection, Dry/intact dressing Sternum: Stable Chest tubes: Minimal drainage, Air leak Pacing Wires: In place Lungs: Normal Breath Sounds, No Wheeze, Rales, Rhonchi Neuro: Alert and responsive, No focal deficits noted Vascular: Normal capillary refill Extremities: No Clubbing, No Cyanosis, No Edema - Labs 03/05/17 03:40 03/05/17 03:40 Lab Results, Last 24 hours 03/05/17 03/05/17 03:40 03:40 WBC 14.0 H Hgb 10.8 L Hct 32.7 L Plt Count 124 L Sodium 137 Potassium 4.1 Chloride 106 Carbon Dioxide 26 BUN 17 Creatinine 0.86 Glucose 168 H Calcium 8.1 L - Imaging Chest Xray: image reviewed (No pneumothorax. Improved aeration in left base.) - VTE Reasons for not Prescribing Prophylaxis: Treatment not Indicated - Low risk for VTE Documentation of Mechanical Device: Graduated compression elastic hosiery Consult Discharge Plan - Plan Referrals: Jesus Brown Jr, MD [Primary Care Provider] -
--- NOTE | 2017-03-05 19:29 | Electrocardiograph Report ---
[address] [address] Test Date: 2017-03-05 Pat Name: Cruz Hook Department: 109 Room: [facility] Gender: M Can Piler: REBEKAH : 1945 Requested By: Willian Yeboah Order Number: [id number] Reading MD: Woodrow Chan MD Measurements Intervals [place] Rate: 139 P: [place]: 0 QRS: 51 QRSD: 94 T: -62 QT: 283 QTc: 364 Interpretive Statements ATRIAL FIBRILLATION WITH RAPID VENTRICULAR RESPONSE WITH ABERRANT CONDUCTION OR VENTRICULAR PREMATURE COMPLEXES Electronically Signed On 03-05-2017 19:27:49 EST by Woodrow Chan MD
[2017-03-05] MEDS: Dexmedetomidine HCl 400 MCG/100 ML MLS IVC SCH ×2 (20:13→20:14)
[2017-03-05] MEDS: 0.9 % Sodium Chloride w KCl 20 MEQ/1,000 ML MLS IVC SCH (20:13)
[2017-03-05] MEDS: Insulin Human Regular 100 UNIT in 0.9 % Sodium Chloride 100 ML IVC SCH (20:14)
[2017-03-05] MEDS: Norepinephrine 4 MG in D5% in Water 250 ML IVC SCH (20:14)
[2017-03-06] MEDS: 0.9 % Sodium Chloride w KCl 20 MEQ/1,000 ML MLS IVC SCH (00:30)
[2017-03-06] MEDS: dilTIAZem HCl 100 MG in D5% in Water 50 ML IVC SCH ×2 (04:45→15:52)
[2017-03-06] MEDS: Metoclopramide 10 MG/2 ML VIAL IVP SCH ×2 (04:46→13:19)
[2017-03-06] MEDS: *HR* Heparin 5,000 UNIT/ML VIAL SQ SCH ×2 (04:46→17:38)
[2017-03-06 06:17] LABS: Basophils % 0.2 %; Eosinophils # 0.1 K/mcL (0.0-0.6); Eosinophils % 0.7 %; Hematocrit 32.1 % (37.5-50.1); Hemoglobin 10.5 g/dL (12.9-16.9); Immature Granulocytes % 0.6 % (0-4); Lymphocytes % 8.4 %; Mean Corpuscular HGB Conc 32.7 g/dL (31.6-35.5); Mean Corpuscular Volume 88.7 fL (83.0-100.0); Mean Platelet Volume 10.1 fL (9.4-12.4); Monocytes % 8.6 %; Neutrophils # 9.9 K/mcL (1.6-8.9); Platelet Count 158 K/mcL (140-400); Red Blood Count 3.62 M/mcL (4.19-5.50); Red Cell Distribution Width 14.2 % (11.5-14.5); Segmented Neutrophils % 81.5 %
[2017-03-06 06:33] LABS: BUN/Creatinine Ratio 27 (6-26); Blood Urea Nitrogen 22 mg/dL (8-23); Calcium 8.4 mg/dL (8.6-10.3); Carbon Dioxide 28 mEq/L (23-29); Chloride 102 mEq/L (98-107); Glucose 180 mg/dL (70-105); Osmolality,Calculated 288 (280-300); Potassium 3.9 mEq/L (3.5-5.1); Sodium 135 mEq/L (136-145); eGFR For African Americans > 60 (> 60); eGFR For Non-African Americans > 60 (> 60)
[2017-03-06] MEDS: Pantoprazole 40 MG VIAL IVP SCH (08:47)
[2017-03-06] MEDS: Aspirin Enteric Coated 81 MG Tablet PO SCH (08:47)
[2017-03-06] MEDS: Multivit/Ca/Min/Fe/FA 1 TAB TABLET PO SCH (08:47)
[2017-03-06] MEDS: Furosemide 20 MG/2 ML VIAL IVP SCH (08:47)
[2017-03-06] MEDS: Insulin LISPRO 300 UNITS/3 ML VIAL SQ SCH ×4 (08:48→20:00)
[2017-03-06] MEDS: Dexmedetomidine HCl 400 MCG/100 ML MLS IVC SCH (09:55)
[2017-03-06] MEDS: Chlorhexidine Rinse 15 ML MOUTHWASH MM SCH ×2 (09:58→19:59)
--- NOTE | 2017-03-06 13:02 | Cardiothoracic Progress Note ---
Date of Encounter: 03/06/17 Time of Encounter: 13:00 - Assessment and plan (1) CAD (coronary artery disease) Current Visit: Yes Status: Acute The patient is recovering well from his CABGx3. He is breathing comfortably. His atrial fibrillation continues; however, the heart rate is controlled with the Cardizem drip. The chest tubes were removed. He will be transferred to the stepdown unit when a bed is available. The assessment and plan as outlined above was discussed with the patient and/or family members who expressed understanding and agreement. All questions were answered. Qualifiers: Coronary Disease-Associated Artery/Lesion type: [place] artery [place] vs. transplanted heart: [place] heart Associated angina: with stable angina Qualified Code(s): I25.118 - Atherosclerotic heart disease of [place] coronary artery with other forms of angina pectoris - Subjective Procedure(s) Performed: POD#3 S/P CABG3 Interval history: The patient remained hemodynamically stable overnight. He is breathing comfortably. He has no complaints. Vital Signs, Last 4 Hours Pulse Resp BP Pulse Ox 03/06/17 11:03 16 94 03/06/17 10:00 84 18 136/79 Oxgyen Flow Rate Oxygen Flow Rate (LPM) 6 Weight 03/04/17 03/05/17 03/06/17 23:59 23:59 23:59 Weight 160.6 kg 159.2 kg 154.9 kg - Physical Examination General: Conversant, No Apparent Distress Neck: No JVD, Normal carotid pulses Cardiac: Normal S1 and S2, No Murmur, Other (Irregular rate and rhythm (atrial fibrillation)) Incision: No signs of infection, Dry/intact dressing Sternum: Stable Pacing Wires: In place Lungs: Normal Breath Sounds, No Wheeze, Rales, Rhonchi Neuro: Alert and responsive, No focal deficits noted Vascular: Normal capillary refill Musculoskeletal: No Chest Wall Tenderness Extremities: No Clubbing, No Cyanosis, No Edema - Labs 03/06/17 06:07 03/06/17 06:07 Lab Results, Last 24 hours 03/06/17 03/06/17 06:07 06:07 WBC 12.1 H Hgb 10.5 L Hct 32.1 L Plt Count 158 Sodium 135 L Potassium 3.9 Chloride 102 Carbon Dioxide 28 BUN 22 Creatinine 0.83 Glucose 180 H Calcium 8.4 L - VTE Reasons for not Prescribing Prophylaxis: Treatment not Indicated - Low risk for VTE Documentation of Mechanical Device: Graduated compression elastic hosiery Consult Discharge Plan - Plan Referrals: Jesus Brown Jr, MD [Primary Care Provider] -
[2017-03-06] MEDS: Norepinephrine 4 MG in D5% in Water 250 ML IVC SCH (13:15)
[2017-03-06] MEDS: Insulin Human Regular 100 UNIT in 0.9 % Sodium Chloride 100 ML IVC SCH (13:15)
[2017-03-06] MEDS ORDERED: Ondansetron 4 MG/2 ML VIAL IVP PRN (14:32)
[2017-03-06] MEDS ORDERED: Insulin Regular, Human 100 UNIT/ML IV PRN (14:32)
[2017-03-06] MEDS ORDERED: Naloxone 0.4 MG/ML INJ IVP PRN (14:32)
[2017-03-06] MEDS ORDERED: Acetaminophen 325 MG TABLET PO PRN (14:32)
[2017-03-06] MEDS ORDERED: *HR* Dextrose 50 % in Water (Syg) 50 ML SYRINGE IVP PRN (14:32)
[2017-03-06] MEDS ORDERED: *HR* HYDROcodone/Acet 5/325 mg TABLET PO PRN (14:32)
[2017-03-06] MEDS ORDERED: *HR* Morphine 2 MG/ML SYRINGE IVP PRN ×2 (14:32)
[2017-03-06] MEDS ORDERED: D5% in Water 1,000 ML IVC PRN (14:32)
[2017-03-06] MEDS ORDERED: *HR* OxyCODONE/APAP 5/325 TABLET PO PRN (14:32)
[2017-03-06] MEDS ORDERED: Dextrose Gel 15 GM/37.5 ML TUBE PO PRN ×2 (14:32)
[2017-03-06] MEDS ORDERED: Metoclopramide 10 MG/2 ML VIAL IVP SCH (18:00)
[2017-03-06] MEDS ORDERED: Furosemide 20 MG/2 ML VIAL IVP ONE ×2 (19:49→21:00)
[2017-03-07] MEDS: Aspirin Enteric Coated 81 MG Tablet PO SCH (08:27)
[2017-03-07] MEDS: Chlorhexidine Rinse 15 ML MOUTHWASH MM SCH ×2 (08:28→19:50)
[2017-03-07] MEDS: Insulin LISPRO 300 UNITS/3 ML VIAL SQ SCH ×4 (08:28→21:10)
[2017-03-07] MEDS: Pantoprazole 40 MG VIAL IVP SCH (08:28)
[2017-03-07] MEDS: Multivit/Ca/Min/Fe/FA 1 TAB TABLET PO SCH (08:28)
[2017-03-07] MEDS: dilTIAZem HCl 100 MG in D5% in Water 50 ML IVC SCH (10:58)
[2017-03-07] MEDS: *HR* Heparin 5,000 UNIT/ML VIAL SQ SCH ×2 (11:01→19:19)
--- NOTE | 2017-03-07 12:16 | Cardiothoracic Progress Note ---
Date of Encounter: 03/07/17 Time of Encounter: 12:13 - Assessment and plan (1) CAD (coronary artery disease) Current Visit: Yes Status: Acute The patient is recovering well from his CABGx3. He is breathing comfortably. His atrial fibrillation continues; however, the heart rate is controlled with the Cardizem drip. He will begin ambulating in the hallways today. The assessment and plan as outlined above was discussed with the patient and/or family members who expressed understanding and agreement. All questions were answered. Qualifiers: Coronary Disease-Associated Artery/Lesion type: [place] artery [place] vs. transplanted heart: [place] heart Associated angina: with stable angina Qualified Code(s): I25.118 - Atherosclerotic heart disease of [place] coronary artery with other forms of angina pectoris - Subjective Procedure(s) Performed: POD#3 S/P CABG3 Interval history: The patient remained hemodynamically stable overnight. He is breathing comfortably. He has no complaints. Vital Signs, Last 4 Hours Temp Pulse Resp BP Pulse Ox 03/07/17 11:25 16 90 03/07/17 11:14 98.6 F 83 19 128/73 93 03/07/17 11:00 92 03/07/17 08:20 109 Oxgyen Flow Rate Oxygen Flow Rate (LPM) 2 Clinical Data, last 8 Hours Output, Urine Amount 0 Output, Urine Amount 0 Output, Urine Amount 325 Weight 03/05/17 03/06/17 03/07/17 23:59 23:59 23:59 Weight 159.2 kg 154.9 kg 153.8 kg - Physical Examination General: Conversant, No Apparent Distress Neck: No JVD, Normal carotid pulses Cardiac: Normal S1 and S2, No Murmur, Other (Iregular rate and rhythm (atrial fibrillation)) Incision: No signs of infection, Dry/intact dressing Sternum: Stable Pacing Wires: In place Lungs: Normal Breath Sounds, No Wheeze, Rales, Rhonchi Neuro: Alert and responsive, No focal deficits noted Abdomen: Soft, Non-tender, Hepatosplenomegaly, Masses, Other Extremities: No Clubbing, No Cyanosis, No Edema - Labs 03/06/17 06:07 03/06/17 06:07 - VTE Reasons for not Prescribing Prophylaxis: Treatment not Indicated - Low risk for VTE Documentation of Mechanical Device: Graduated compression elastic hosiery Consult Discharge Plan - Plan Referrals: Jesus Brown Jr, MD [Primary Care Provider] -
[2017-03-07] MEDS: Diltiazem CD (24hr) 240 MG CAPSULE PO SCH (12:50)
[2017-03-08] MEDS: *HR* Heparin 5,000 UNIT/ML VIAL SQ SCH ×2 (06:11→16:57)
[2017-03-08] MEDS: Diltiazem CD (24hr) 240 MG CAPSULE PO SCH (08:04)
[2017-03-08] MEDS: Aspirin Enteric Coated 81 MG Tablet PO SCH (08:04)
[2017-03-08] MEDS: Chlorhexidine Rinse 15 ML MOUTHWASH MM SCH ×2 (08:05→20:04)
[2017-03-08] MEDS: Multivit/Ca/Min/Fe/FA 1 TAB TABLET PO SCH (08:05)
[2017-03-08] MEDS: Insulin LISPRO 300 UNITS/3 ML VIAL SQ SCH ×4 (08:05→20:04)
[2017-03-08] MEDS: Pantoprazole 40 MG VIAL IVP SCH (08:05)
--- NOTE | 2017-03-08 09:32 | Cardiothoracic Progress Note ---
Date of Encounter: 03/08/17 Time of Encounter: 09:31 - Assessment and plan (1) CAD (coronary artery disease) Current Visit: Yes Status: Acute The patient is recovering well from his CABGx3. He is breathing comfortably. His atrial fibrillation continues; however, the heart rate is controlled with oral Cardizem. He will continue ambulating in the hallways today. The assessment and plan as outlined above was discussed with the patient and/or family members who expressed understanding and agreement. All questions were answered. Qualifiers: Coronary Disease-Associated Artery/Lesion type: [place] artery [place] vs. transplanted heart: [place] heart Associated angina: with stable angina Qualified Code(s): I25.118 - Atherosclerotic heart disease of [place] coronary artery with other forms of angina pectoris - Subjective Procedure(s) Performed: POD#5 S/P CABG3 Interval history: The patient remained hemodynamically stable overnight. He is breathing comfortably. He has no complaints. Vital Signs, Last 4 Hours Temp Pulse Resp BP Pulse Ox 03/08/17 08:29 95 03/08/17 08:17 14 95 03/08/17 07:43 98.4 F 96 23 127/86 95 Oxgyen Flow Rate Oxygen Flow Rate (LPM) 2 Clinical Data, last 8 Hours Output, Urine Amount 400 Output, Urine Amount 300 Output, Urine Amount 350 Weight 03/06/17 03/07/17 03/08/17 23:59 23:59 23:59 Weight 154.9 kg 153.8 kg 157.2 kg - Physical Examination General: Conversant, No Apparent Distress Neck: No JVD, Normal carotid pulses Cardiac: Normal S1 and S2, No Murmur, Other (Irregular rate and rhythm (atrial fibrillation)) Incision: No signs of infection, Dry/intact dressing Sternum: Stable Pacing Wires: In place Lungs: Normal Breath Sounds, No Wheeze, Rales, Rhonchi Neuro: Alert and responsive, No focal deficits noted Vascular: Normal capillary refill Extremities: No Clubbing, No Cyanosis, No Edema - Labs 03/06/17 06:07 03/06/17 06:07 - VTE Reasons for not Prescribing Prophylaxis: Treatment not Indicated - Low risk for VTE Documentation of Mechanical Device: Graduated compression elastic hosiery Consult Discharge Plan - Plan Referrals: Jesus Brown Jr, MD [Primary Care Provider] -
[2017-03-09] MEDS: *HR* Heparin 5,000 UNIT/ML VIAL SQ SCH ×2 (06:18→17:41)
[2017-03-09] MEDS: Multivit/Ca/Min/Fe/FA 1 TAB TABLET PO SCH (08:15)
[2017-03-09] MEDS: Pantoprazole 40 MG VIAL IVP SCH (08:16)
[2017-03-09] MEDS: Aspirin Enteric Coated 81 MG Tablet PO SCH (08:16)
[2017-03-09] MEDS: Chlorhexidine Rinse 15 ML MOUTHWASH MM SCH ×2 (08:16→20:10)
[2017-03-09] MEDS: Diltiazem CD (24hr) 240 MG CAPSULE PO SCH (08:16)
[2017-03-09] MEDS: Insulin LISPRO 300 UNITS/3 ML VIAL SQ SCH ×4 (08:17→20:10)
--- NOTE | 2017-03-09 10:04 | Cardiothoracic Progress Note ---
Date of Encounter: 03/09/17 Time of Encounter: 10:03 - Assessment and plan (1) CAD (coronary artery disease) Current Visit: Yes Status: Acute The patient is recovering well from his CABGx3. He is breathing comfortably. His atrial fibrillation continues; however, the heart rate is controlled with oral Cardizem. He will continue ambulating in the hallways today. The patient is awaiting insurance approval for inpatient rehabilitation transfer as a bridge to home. The assessment and plan as outlined above was discussed with the patient and/or family members who expressed understanding and agreement. All questions were answered. Qualifiers: Coronary Disease-Associated Artery/Lesion type: [place] artery [place] vs. transplanted heart: [place] heart Associated angina: with stable angina Qualified Code(s): I25.118 - Atherosclerotic heart disease of [place] coronary artery with other forms of angina pectoris - Subjective Procedure(s) Performed: POD#6 S/P CABG3 Interval history: The patient remained hemodynamically stable overnight. He is breathing comfortably. He has no complaints. Vital Signs, Last 4 Hours Temp Pulse Resp BP Pulse Ox 03/09/17 07:50 18 96 03/09/17 07:29 98.2 F 114 18 147/85 94 Oxgyen Flow Rate Oxygen Flow Rate (LPM) 3 Clinical Data, last 8 Hours Output, Urine Amount 250 Output, Urine Amount 600 Output, Urine Amount 300 Output, Urine Amount 400 Weight 03/07/17 03/08/17 03/09/17 23:59 23:59 23:59 Weight 153.8 kg 157.2 kg 155.5 kg - Physical Examination General: Conversant, No Apparent Distress Neck: No JVD, Normal carotid pulses Cardiac: Normal S1 and S2, No Murmur, Other (Irregular rate and rhythm (atrial fibrillation)) Incision: No signs of infection, Dry/intact dressing Sternum: Stable Pacing Wires: In place Lungs: Normal Breath Sounds, No Wheeze, Rales, Rhonchi Neuro: Alert and responsive, No focal deficits noted Vascular: Normal capillary refill Extremities: No Clubbing, No Cyanosis, No Edema - Labs 03/06/17 06:07 03/06/17 06:07 - VTE Reasons for not Prescribing Prophylaxis: Treatment not Indicated - Low risk for VTE Documentation of Mechanical Device: Graduated compression elastic hosiery Consult Discharge Plan - Plan Referrals: Willian Yeboah MD [Partnered Physician] - 04/22/17 1:00 pm () Venita Martin MD [Partnered Physician] - 04/23/17 10:45 am () Jesus Brown Jr, MD [Primary Care Provider] - (THIS PATIENT IS GOING TO REHAB, NO PCP APPOINTMENT NEEDED)
[2017-03-10] MEDS: *HR* Heparin 5,000 UNIT/ML VIAL SQ SCH (06:42)
[2017-03-10] MEDS: Chlorhexidine Rinse 15 ML MOUTHWASH MM SCH ×2 (08:12→22:06)
[2017-03-10] MEDS: Multivit/Ca/Min/Fe/FA 1 TAB TABLET PO SCH (08:12)
[2017-03-10] MEDS: Diltiazem CD (24hr) 240 MG CAPSULE PO SCH (08:12)
[2017-03-10] MEDS: Aspirin Enteric Coated 81 MG Tablet PO SCH (08:12)
[2017-03-10] MEDS: Pantoprazole 40 MG VIAL IVP SCH (08:13)
[2017-03-10] MEDS: Insulin LISPRO 300 UNITS/3 ML VIAL SQ SCH ×4 (08:13→22:09)
--- NOTE | 2017-03-10 09:18 | Discharge Summary ---
Date of Encounter: 03/10/17 Time of Encounter: 09:13 - Discharge Diagnosis (1) CAD (coronary artery disease) Priority: Primary Status: Acute Qualifiers: Coronary Disease-Associated Artery/Lesion type: [place] artery [place] vs. transplanted heart: [place] heart Associated angina: with stable angina Qualified Code(s): I25.118 - Atherosclerotic heart disease of [place] coronary artery with other forms of angina pectoris - Discharge Medications Prescriptions: OxyCODONE/APAP 5/325 [Percocet 5/325 MG] 1 each PO Q4HR PRN #42 tablet PRN Reason: Severe Pain Diltiazem CD (24hr) [Cardizem CD] 240 mg PO DAILY #30 cap.er.24h Metoprolol [Lopressor] 50 mg PO BID #60 tablet Rivaroxaban [Xarelto] 10 mg PO 1700 #30 tablet Simvastatin [Zocor] 10 mg PO HS #30 tablet Home Medications: Multivit-Min/FA/Lycopen/Lutein [Centrum Silver Men Tablet] 1 tab PO DAILY [History] Aspirin Enteric Coated [Aspirin EC] 81 mg PO DAILY tablet. 03/10/17 [Rx] Diltiazem CD (24hr) [Cardizem CD] 240 mg PO DAILY #30 cap.er.24h 03/10/17 [Rx] Metoprolol [Lopressor] 50 mg PO BID #60 tablet 03/10/17 [Rx] OxyCODONE/APAP 5/325 [Percocet 5/325 MG] 1 each PO Q4HR PRN #42 tablet 03/10/17 [Rx] Rivaroxaban [Xarelto] 10 mg PO 1700 #30 tablet 03/10/17 [Rx] Simvastatin [Zocor] 10 mg PO HS #30 tablet 03/10/17 [Rx] Allergies/Adverse Reactions: 3 Allergy/AdvReac Type Severity Reaction Status Date / Time No Known Allergies Allergy Verified 06/11/16 12:01 Date of admission: 03/03/17 12:31 Primary care physician: Jesus Brown Jr, MD Consults: 03/02/17 18:17 Consult to Cardiothoracic Surgery [CONS] Routine Consulting Provider: Cardiothoracic Surgery [place] Reason for Consult: open heart Call Completed: Yes 03/03/17 12:18 Consult to Cardiac Rehabilitation-Phase1 [CONS] Routine Comment: Reason for Consult: Post open heart Call Completed: Yes Consult to Squeegee Operator [CONS] Routine Reason for SW Consult: Inpatient rehab placement 03/07/17 11:24 Consult to Occupational Therapy [CONS] Routine Comment: Evaluate, develop and implement POC Reason for Consult: DC PLANNING. PT LIVES HOME ALONE Consult to Physical Therapy [CONS] Routine Comment: Evaluate, develop and implement POC Reason for Consult: DC PLANNING. PT LIVES HOME ALONE Procedure(s) Performed: 1. Cardiac catheterization performed March 02, 2017. 2. CABG x 3 (DOMÍNGUEZ to LAD, SVG to distal LCx, SVG to PDA) performed March 03, 2017. 3. Endoscopic vein harvesting, greater saphenous vein from right lower extremity performed March 03, 2017. Discharging clinician: Willian Yeboah Anticipated date of discharge: 03/10/17 - Patient Status Disposition: Transfer Inpatient Rehab Fac Condition: Good Functional capacity at discharge: independent ambulation Overall status at discharge: patient is progressing back to baseline - Discharge Instructions Follow Up With: Willian Yeboah MD [Partnered Physician] - 04/22/17 1:00 pm () Venita Martin MD [Partnered Physician] - 04/23/17 10:45 am () Jesus Brown Jr, MD [Primary Care Provider] - (THIS PATIENT IS GOING TO REHAB, NO PCP APPOINTMENT NEEDED) - Diet and Activity Activity: sternal precautions, no driving for four weeks, no lifting greater than 10 pounds for eight weeks Diet: diabetic diet - Hospital Course Hospital course: Mr. Hook is a 71 year old morbidly obese man who has experienced exertional substernal chest pain radiating to both arms for 3-6 months. Patient has associated shortness of breath, but denies any diaphoresis, nausea, vomiting, or syncope. Occasionally the patient will have pain at rest. He underwent an excise nuclear stress test which reproduced his symptoms and the ECG portion revealed ST depression. He underwent direct admission after his excise stress test. The echocardiogram revealed an LVEF 50% with possible LV diastolic dysfunction. No valvular dysfunction was noted. Subsequent cardiac catheterization revealed severe 3 vessel CAD. Particular the patient and 90% distal left main lesion, an 80-90% mid LAD lesion, and a 90% proximal RCA lesion. The patient was recommended for CABG. The patient underwent CABG 3 on March 03, 2017. He remained hemodynamic stable; however, developed atrial fibrillation on POD #2. He was treated with a Cardizem drip initially and then converted to oral Cardizem. He remained in atrial fibrillation with a controlled rate. He was ambulating without complaints of substernal chest pain or shortness of breath. Xarelto was started on the day of discharge as an anticoagulant for the atrial fibrillation. Patient was discharged to an extended care facility [facility] to home on POD#7. - Time Spent with Patient Total time spent providing and/or coordinating discharge services: Physical Examination Vital Signs, Last 4 Hours Temp Pulse Resp BP Pulse Ox 01/03/18 08:10 98 01/03/18 07:30 98.5 F 106 18 115/90 95 03/10/18 07:28 16 95 General: Conversant, No Apparent Distress HEENT: Atraumatic, Normocephaly, Trachea midline Neck: No JVD, Normal carotid pulses Cardiac: Normal S1 and S2, No Murmur, Other (Irregular rate and rhythm (atrial fibrillation)) Lungs: Normal Breath Sounds, No Wheeze, Rales, Rhonchi Neuro: Alert and responsive, No focal deficits noted Vascular: Normal capillary refill Abdomen: Soft, Non-tender Musculoskeletal: No Chest Wall Tenderness Extremities: No Clubbing, No Cyanosis, No Edema Open Heart Registry Aspirin Cont/Prescribed at DC: Yes Beta [place] Cont/Prescribed at DC: Yes Statin Cont/Prescribed at DC: Yes CANDI/ARB Cont/Prescribed at DC: Not indicated (LVEF greater than 50%) - VTE Reasons for not Prescribing Prophylaxis: Treatment not Indicated - Low risk for VTE Documentation of Mechanical Device: Graduated compression elastic hosiery
--- NOTE | 2017-03-10 09:27 | Physician Discharge Referral ---
ExtendedCare Referral Info Transfer To: Inpatient Rehab Provider in Charge: Edilia Provider in Charge after Transfer: PCP Institutional Level of Care: Skilled - Diagnosis (1) CAD (coronary artery disease) Priority: Primary Status: Acute - Transfer Medications Prescriptions: OxyCODONE/APAP 5/325 [Percocet 5/325 MG] 1 each PO Q4HR PRN #42 tablet PRN Reason: Severe Pain Diltiazem CD (24hr) [Cardizem CD] 240 mg PO DAILY #30 cap.er.24h Metoprolol [Lopressor] 50 mg PO BID #60 tablet Rivaroxaban [Xarelto] 10 mg PO 1700 #30 tablet Simvastatin [Zocor] 10 mg PO HS #30 tablet Home Medications: Multivit-Min/FA/Lycopen/Lutein [Centrum Silver Men Tablet] 1 tab PO DAILY [History] Aspirin Enteric Coated [Aspirin EC] 81 mg PO DAILY tablet. 03/10/17 [Rx] Diltiazem CD (24hr) [Cardizem CD] 240 mg PO DAILY #30 cap.er.24h 03/10/17 [Rx] Metoprolol [Lopressor] 50 mg PO BID #60 tablet 03/10/17 [Rx] OxyCODONE/APAP 5/325 [Percocet 5/325 MG] 1 each PO Q4HR PRN #42 tablet 03/10/17 [Rx] Rivaroxaban [Xarelto] 10 mg PO 1700 #30 tablet 03/10/17 [Rx] Simvastatin [Zocor] 10 mg PO HS #30 tablet 03/10/17 [Rx] Allergies/Adverse Reactions: 3 Allergy/AdvReac Type Severity Reaction Status Date / Time No Known Allergies Allergy Verified 06/11/16 12:01 - Respiratory Orders Smoking Cessation: Smoking cessation has been advised. For more information, call the [place] Tobacco Quit Line at 4-796-BFRA-NOW. - Ancillary Orders May use pressure relief devices daily prn, May consult with Dentist, Threading Machine Feeder Automatic, Funeral Arranger PRN - Advance Directives Code Status: Full Code - Mobility Orders Ambulate - Rehabiliation Orders Rehab Potential: Good Rehab Orders: Sternal Precautions, ROM Exercises, Evaluation for Physical Therapy, Evaluation for Occupational Therapy - Treatments Skin tear care topically daily PRN per policy, May check for fecal impaction rectally daily PRN, Fleet enema rectally every other day PRN cleansing purposes - Diet Orders Cardiac CERTIFICATION: I certify that the transfer of the above named patient to an Extended Care Facility is necessary for the continuing treatment of the diagnosis listed. The above information is true and accurate reflection of patient's current condition. Confidential - Redisclosure prohibited without a patient's written consent.
[2017-03-10] MEDS: *HR* Rivaroxaban 10 MG TABLET PO SCH (10:45)
[2017-03-10] MEDS: Menthol 9.1 MG LOZENGE PO PRN ×4 (11:00→17:00)
[2017-03-11] MEDS: Multivit/Ca/Min/Fe/FA 1 TAB TABLET PO SCH (08:06)
[2017-03-11] MEDS: Pantoprazole 40 MG VIAL IVP SCH (08:06)
[2017-03-11] MEDS: Diltiazem CD (24hr) 240 MG CAPSULE PO SCH (08:06)
[2017-03-11] MEDS: Aspirin Enteric Coated 81 MG Tablet PO SCH (08:06)
[2017-03-11] MEDS: Chlorhexidine Rinse 15 ML MOUTHWASH MM SCH (08:06)
[2017-03-11] MEDS: *HR* Rivaroxaban 10 MG TABLET PO SCH (08:06)
[2017-03-11] MEDS: Insulin LISPRO 300 UNITS/3 ML VIAL SQ SCH ×2 (08:10→11:48)
--- NOTE | 2017-03-11 08:13 | Cardiothoracic Progress Note ---
Date of Encounter: 03/11/17 Time of Encounter: 08:10 - Assessment and plan (1) CAD (coronary artery disease) Current Visit: Yes Status: Acute The patient is recovering well from his CABGx3. He is breathing comfortably. His atrial fibrillation continues; however, the heart rate is controlled with oral Cardizem. He will continue ambulating in the hallways today. The patient's transfer to an inpatient rehabilitation Center has been improved and the patient will be discharged today. The assessment and plan as outlined above was discussed with the patient and/or family members who expressed understanding and agreement. All questions were answered. Qualifiers: Coronary Disease-Associated Artery/Lesion type: [place] artery [place] vs. transplanted heart: [place] heart Associated angina: with stable angina Qualified Code(s): I25.118 - Atherosclerotic heart disease of [place] coronary artery with other forms of angina pectoris - Subjective Procedure(s) Performed: POD#8 S/P CABG3 Interval history: The patient remained hemodynamically stable overnight. He is breathing comfortably. He has no complaints. Vital Signs, Last 4 Hours Temp Pulse Resp BP Pulse Ox 03/11/17 07:54 114 03/11/17 07:41 105 20 94 03/11/17 07:38 18 94 03/11/17 07:11 98.2 F 80 18 137/93 96 03/11/17 06:05 92 03/11/17 05:24 98.1 F 98 21 134/90 96 Oxgyen Flow Rate Oxygen Flow Rate (LPM) 2.5 Clinical Data, last 8 Hours Output, Urine Amount 0 Output, Urine Amount 580 Weight 03/09/17 03/10/17 03/11/17 23:59 23:59 23:59 Weight 155.5 kg 158.3 kg 150.3 kg - Physical Examination General: Conversant, No Apparent Distress Neck: No JVD, Normal carotid pulses Cardiac: Normal S1 and S2, No Murmur, Other (Irregular rate and rhythm (atrial fibrillation)) Incision: No signs of infection, Dry/intact dressing Sternum: Stable Lungs: Normal Breath Sounds, No Wheeze, Rales, Rhonchi Neuro: Alert and responsive, No focal deficits noted Vascular: Normal capillary refill Musculoskeletal: No Chest Wall Tenderness Extremities: No Clubbing, No Cyanosis, No Edema - Labs 03/06/17 06:07 12/30/17 06:07 - VTE Reasons for not Prescribing Prophylaxis: Treatment not Indicated - Low risk for VTE Documentation of Mechanical Device: Graduated compression elastic hosiery Consult Discharge Plan - Plan Instructions: Coronary Artery Disease (GEN), Coronary Artery Bypass Graft (DC) Additional Instructions: If you have questions that are not answered by these instructions, please call your nurse or doctor. * Do not drive for 1 month or until allowed by your surgeon. * If you smoke, STOP SMOKING. Smoking or tobacco use significantly increases your risk of heart disease because nicotine causes the arteries to narrow or constrict. It also causes fats to stick to the artery. Your chances of occluding your new bypasses or having a heart attack are greatly increased if you continue to smoke. For more information call the patient education line for smoking cessation 1-221-EIRU-NOW. * Continue to use your incentive Spirometry about 6 times each day (1 use = 5 to 10 breaths) for 1 month. This important to help prevent pneumonia. * Follow your Phase I Cardiac Rehab Activity Guide. * You may climb stairs, one step at a time, as you are able. * Do not lift more than 10 pounds (1/2 gallon of milk = 5 pounds), vacuum, sweep , shovel snow, rake leaves, or do anything that could pull on the chest for 2 months. * You may resume sexual activity when you feel ready. * Continue to wear PAT hose during the day for about 1 month. Remove and wash daily in mild detergent. * Gently wash incision with soap and water daily. Rinse well and pat dry with a clean towel. Do not soak your incisions under water. Do not use any powders, lotions, creams or ointments on your incision. * Chest tube sites may drain fluid for 1-2 weeks and can be covered with dry gauze. They also may become reddened or inflamed as they heal and can be cleaned twice a day with hydrogen peroxide. * Take your pulse once a day. If it is less than 60 or greater than 110 beats per minute at rest, call your Security Support Analyst * Take your temperature by mouth once a day for 2 weeks. Call your surgeon of it is above 101 degrees. * Call the surgeon if you notice drainage or redness at your incision lines. * Weigh yourself each day for 2 weeks. Call your doctor if you notice and increase in your weight of 3 pounds or more in a day or increasing shortness of breath. * If you experience chest pain, shortness of breath, dizziness or extreme tiredness, stop and rest. Please notify your doctor if you experience any of these symptoms. * If you experience any of these symptoms and they are not relieved with rest, please call 911. Referrals: Willian Yeboah MD [Partnered Physician] - 04/22/17 1:00 pm () Venita Martin MD [Partnered Physician] - 04/23/17 10:45 am () Jesus Brown Jr, MD [Primary Care Provider] - (THIS PATIENT IS GOING TO REHAB, NO PCP APPOINTMENT NEEDED) Prescriptions: OxyCODONE/APAP 5/325 [Percocet 5/325 MG] 1 each PO Q4HR PRN #42 tablet PRN Reason: Severe Pain Diltiazem CD (24hr) [Cardizem CD] 240 mg PO DAILY #30 cap.er.24h Metoprolol [Lopressor] 50 mg PO BID #60 tablet Rivaroxaban [Xarelto] 10 mg PO 1700 #30 tablet Simvastatin [Zocor] 10 mg PO HS #30 tablet
[2017-03-11 16:00] VITALS: BP 134/67
== END 2017-03-11 18:02 | DRG 234 ==
LOC: CARSER 07:46 → 2NENU 07:46 → EDSTATUS 08:00 → 2NNU 18:18 → ICNU 03-03 08:17 → 2NNU 03-06 16:41
PROVIDERS: ADMIT Internal Medicine Cardiovascular Disease; ATTEND Thoracic Surgery (Cardiothoracic Vascular Surgery)